=== PATIENT | female | born 1970 | race African-American/Black ===

== ENCOUNTER 2017-03-07 13:24 | Inpatient (IN) | payer OTHER ==
[~2017-03-07] VITALS: Ht 157.5 cm; Wt 94.8 kg
[~2017-03-07 13:24] MED LIST: ATORVASTATIN CA40 MG PO; CARVEDILOL25 MG PO; HUMALOG SL100 UNITS/; HYZAAR 25 MG-101 TAB PO; LANTUS INS100 UNITS/ SUBQ; LASIX20 MG PO; LISINOPRIL40 M1 PO; METFORMIN500 MG PO; OMEPRAZOLE20 M3 PO; SYNTHROID0.025 MG PO
[2017-03-07 13:26] VITALS: BP 146/91
[2017-03-07] MEDS ORDERED: ALBUTEROL SULFATE/IPRATROPIU 3 ML SOL IH ONE ×2 (13:35→14:25)
--- NOTE | 2017-03-07 13:45 | NUR ---
PATIENT PRESENTS TO ED WITH asthma exacerbation--last night, full clear speech at this time seen at urgent care x2 days ago dx uri hx asthma, dm, htn, thyroid, chf PT STATES THE OVER THE COUNTER MEDICINE DIDNT WORK, WITH DIARRHEA 3X AT HOME; SKIN IS PINK/WARM/DRY; AAOX4 WITH EVEN AND STEADY GAIT; HR EVEN AND REGULAR; PT DENIES ANY FEVER, CP. PATIENT STATES PAIN OF 0/10 AT THIS TIME; PATIENT POSITIONED FOR COMFORT; HOB ELEVATED; BEDRAILS UP X2; BED DOWN. ER MD MADE AWARE OF PT STATUS. TALKED TO RT MADE AWARE OF THE HHN ORDER
--- NOTE | 2017-03-07 13:50 | NUR ---
RT AT BEDSIDE
--- NOTE | 2017-03-07 13:51 | NUR ---
ADMITTING DX: ADULT-ASTHMA LOC AWAKE AND ALERT IN HFW POSITION PATEINT ASSESSMENT COMPLETED EDUCATION PROVIDED TO PATIENT WITH ACKNOWLEDGEMENT ON HHN THERAPY AND RESPIRATORY DRUG HHN THERAPY GIVEN ORDERED ENCOURAGED DEEP BREATH COUGH DURING THERAPY TOLERATED WELL WITHOUT INCIDENT
--- NOTE | 2017-03-07 13:59 | NUR ---
DR. VALIENTE AT BEDSIDE
[2017-03-07] MEDS ORDERED: methylPREDNISolone SS 125 MG in WATER STERILE 2 ML IV ONE (14:05)
--- NOTE | 2017-03-07 14:11 | NUR ---
LAB AT BEDSIDE
--- NOTE | 2017-03-07 14:12 | NUR ---
TALKED TO DR. VALIENTE MADE AWARE O2 SAT 91 ON ROOM AIR, PER MD MAY PUT O2 AT 2L/NC,
--- NOTE | 2017-03-07 14:15 | NUR ---
XRAY AT BEDSIDE
--- NOTE | 2017-03-07 14:16 | NUR ---
EKG AT BEDSIDE
--- NOTE | 2017-03-07 14:31 | NUR ---
RT AT BEDSIDE
--- NOTE | 2017-03-07 14:31 | NUR ---
FOLLOW UP AWAKE AND ALERT POSITION GREATER THAN 30 DEGREES HHN THERAPY GIVEN ORDERED ENCOURAGED DEEP BREATH AND COUGH STRONG MOIST NPC TOLERATED WELL WITHOUT INCIDENT
[2017-03-07] MEDS ORDERED: ENOXAPARIN 80 MG/0.8 ML SYR SUBQ ONE (15:00)
[2017-03-07] MEDS ORDERED: POTASSIUM CHLORIDE 10 MEQ TABER PO ONE (15:00)
[2017-03-07] MEDS ORDERED: ASPIRIN 325 MG TAB PO ONE (15:00)
--- NOTE | 2017-03-07 15:11 | NUR ---
DR. VALIENTE AT BEDSIDE
[2017-03-07] MEDS ORDERED: LEVOFLOXACIN 750 MG/D5W PREMIX 150 ML IV ONE (15:15)
[2017-03-07] MEDS ORDERED: FUROSEMIDE 40 MG/4 ML VIAL IVP ONE (15:15)
[2017-03-07] MEDS ORDERED: NITROGLYCERIN 2% 1 GM PKT TP ONE (15:15)
--- NOTE | 2017-03-07 15:48 | NUR ---
RECEIVED REPORT FROM ER NURSE. WILL BE BRINGING PT ONTO FLOOR SOON WITH LEVAQUIN, STILL INFUSING. WILL GET ROOM READY.
--- NOTE | 2017-03-07 16:00 | NUR ---
PT CAME ON FLOOR ON [facility] WITH 2 ER NURSES. PT AMBULATED FROM [facility] TO THE BATHROOM AND TO BED. I INTRODUCED MYSELF, UPDATED THE BOARD. PT IS ALERT AND ORIENTED. GOOD HISTORIAN OF HER MED HX. PT IS A 46 Y/O -[place] FEMALE. PT SKIN INTACT. PT HAD NC ON O2 AT 2 L. IV ON R HAND 22G SL. ADMINISTERED TELE MONITOR, ID BAND AND BROWN SOCKS. MRSA SCREENING DONE. V/S DONE. B/P SLIGHTLY HIGH AT 151/102, PT ST. ADMINISTERED THE LEVAQUIN THAT THE ER NURSE BROUGHT. PT TOLERATING WELL. WILL CONTINUE WITH THE ADMISSION PROCESS. DENIES ANY PAIN. WILL CONTINUE TO MONITOR PT.
[2017-03-07 16:52] VITALS: BP 151/102
[2017-03-07] MEDS ORDERED: ALBUTEROL SULFATE/IPRATROPIU 3 ML SOL IH PRN (17:00)
[2017-03-07] MEDS ORDERED: DEXTROSE 50% 50 ML SYR IVP PRN (17:00)
[2017-03-07] MEDS ORDERED: LABETALOL 100 MG/20 ML VIAL IVP PRN (17:10)
[2017-03-07] MEDS ORDERED: MORPHINE SULFATE 2 MG/ML SYR IVP PRN (17:15)
[2017-03-07] MEDS ORDERED: MORPHINE SULFATE 4 MG/ML SYR IVP PRN (17:15)
[2017-03-07] MEDS ORDERED: ONDANSETRON 4 MG/2 ML VIAL IVP PRN (17:15)
--- NOTE | 2017-03-07 18:00 | NUR ---
NO DINNER ARRIVED. DR. CISNEROS'S ORDER WENT IN LATE. CALLED DIETARY TO BRING UP A TRAY. PT IS ALERT AND ORIENTED. AMBULATING TO THE BATHROOM. NC STILL INTACT. WILL CONTINUE TO MONITOR PT.
[2017-03-07] MEDS ORDERED: METOPROLOL SUCCINATE 50 MG TABER PO SCH (18:30)
[2017-03-07] MEDS: methylPREDNISolone SS 40 MG/ML VIAL IVP SCH ×2 (18:32→23:56)
--- NOTE | 2017-03-07 19:10 | NUR ---
ENDORSED PT TO THE MACHINE TOOL TECHNICIAN INSTRUCTOR NURSE AT BEDSIDE FOR CONTINUITY OF CARE. PT IS IN STABLE CONDITION.
--- NOTE | 2017-03-07 19:30 | NUR ---
RECEIVED FROM AM RN IN BED AWAKE AND ALERT. SITTING UP IN BED AND EATING DINNER. CALL LIGHT WITH IN REACH. ENCOURAGED TO CALL FOR ANY HELP SHE MAY NEED OR IF IN PAIN. CARE PLANS FOR THE NIGHT DISCUSSED WITH HER. TELEMETRY MONITORING. 02 SAT WITH 02 AT 94 %.
[2017-03-07] MEDS: ALBUTEROL SULFATE/IPRATROPIU 3 ML SOL IH SCH (19:37)
[2017-03-07] MEDS: BUDESONIDE 0.5 MG/2 ML NEBU INH SCH (19:37)
[2017-03-07 20:28] VITALS: BP 144/93
[2017-03-07] MEDS: BLOOD GLUCOSE MONITORING 1 DEV DEV FS SCH (20:51)
[2017-03-07] MEDS: INSULIN LISPRO SLIDING SCALE 100 UNITS/ML VIAL SUBQ PRN (20:51)
[2017-03-07] MEDS ORDERED: TEMAZEPAM 15 MG CAP PO SCH (21:00)
[2017-03-07] MEDS ORDERED: FUROSEMIDE 40 MG TAB PO SCH (21:00)
--- NOTE | 2017-03-07 21:30 | NUR ---
PAGED AND ABLE TO TALK WITH MD MIRZA RE TROPONIN #2 RESULT IS 0.491 AN INCREASE FROM 0.478 TODAY. TALKED WITH PT. ON THE PHONE AND WITH ORDERS TO TRANSFER PT. TOMORROW AT 10 AM TO [facility] VIA PARAMEDICS. MD MIRZA EXPLAINED PROS AND CONS OF ANGIOGRAM HE WANTS DONE. PT. UNDERSTOOD WELL. INFORMED CHARGE NURSE. AWARE.
[2017-03-08 00:50] VITALS: BP 150/91
--- NOTE | 2017-03-08 00:55 | NUR ---
PT. SLEEPING AT THIS TIME. MEDICATED WITH RESTORIL 15 MG. P.O. ORDERED BY MD MIRZA RT UN ABLE TO SLEEP. CALL LIGHT WITH IN REACH.
[2017-03-08] MEDS: ALBUTEROL SULFATE/IPRATROPIU 3 ML SOL IH SCH ×2 (01:07→07:18)
--- NOTE | 2017-03-08 01:14 | NUR ---
SPUTUM SPECIMEN COLLECTED BY RESPIRATORY THERAPIST AND SENT TO LAB.
--- NOTE | 2017-03-08 03:10 | NUR ---
SLEEPING AT THIS TIME. NO RESTLESSNESS. TELEMETRY MONITORING.
[2017-03-08 03:29] VITALS: BP 140/73
[2017-03-08] MEDS: methylPREDNISolone SS 40 MG/ML VIAL IVP SCH (06:03)
[2017-03-08] MEDS: BLOOD GLUCOSE MONITORING 1 DEV DEV FS SCH (06:04)
[2017-03-08] MEDS: INSULIN LISPRO SLIDING SCALE 100 UNITS/ML VIAL SUBQ PRN (06:06)
[2017-03-08] MEDS ORDERED: LEVOTHYROXINE 0.1 MG, LEVOTHYROXINE 0.05 MG PO SCH (06:30)
--- NOTE | 2017-03-08 07:03 | NUR ---
AWAKE AND REMINDED LIQUID DIET AND NPO AFTER 7 A.M.
[2017-03-08] MEDS: BUDESONIDE 0.5 MG/2 ML NEBU INH SCH (07:17)
--- NOTE | 2017-03-08 07:29 | NUR ---
TROPONIN LATEST 0.397 REPORTED BY LAB. TECH. PER HERMES NOT TO CALL HIM ANYMORE OF THE 3RD VALUE. ENDORSED TO THE NEXT RN FOR CONTINUITY OF CARE. AWAKE AND ALERT AT THIS TIME. REMINDED OF NPO AFTER 7 A.M.
--- NOTE | 2017-03-08 07:36 | NUR ---
RECEIVED REPORT FROM BLADIMIR RAMOS. PT IS RESTING IN BED, A/OX4, PT HAS IV ON RT HAND, PATENT AND INTACT, SKIN IS INTACT, NO S/S OF RESPIRATORY DISTRESS OR DISCOMFORT NOTED, FALL/SAFETY PRECAUTIONS ARE IN PLACE, DISCUSSED PLAN OF CARE WITH PT, PT VERBALIZED UNDERSTANDING, CALL LIGHT IS WITHIN REACH, WILL CONTINUE TO MONITOR.
--- NOTE | 2017-03-08 07:54 | NUR ---
PATIENT HAS BEEN SCREENED AND CATEGORIZED MODERATE NUTRITION RISK. PATIENT WILL BE SEEN WITHIN 3-5 DAYS OF ADMISSION. 03/10/17-03/12/[address]
[2017-03-08 08:00] VITALS: BP 136/75
[2017-03-08] MEDS ORDERED: PANTOPRAZOLE 40 MG TABEC PO SCH (08:00)
--- NOTE | 2017-03-08 08:20 | NUR ---
DUE MEDICATIONS GIVEN, HELD THE LOVENOX AND ASPIRIN SINCE PT WELL BE UNDERGOING AN ANGIO JUMPBASTING ARMHOLE BASTER PROCEDURE.
[2017-03-08] MEDS ORDERED: NON-FORMULARY ITEM (Omeprazole 20 MG) PO SCH (09:00)
[2017-03-08] MEDS ORDERED: LOSARTAN PO SCH (09:00)
[2017-03-08] MEDS ORDERED: HYDROCHLOROTHIAZIDE 25 MG TAB PO SCH (09:00)
[2017-03-08] MEDS ORDERED: HYDROCHLOROTHIAZIDE PO SCH (09:00)
[2017-03-08] MEDS ORDERED: ECOTRIN 81 MG TABEC PO SCH (09:00)
[2017-03-08] MEDS ORDERED: LISINOPRIL 20 MG TAB PO SCH (09:00)
[2017-03-08] MEDS ORDERED: ATORVASTATIN 20 MG TAB PO SCH (09:00)
[2017-03-08] MEDS ORDERED: NON-FORMULARY ITEM (Lisinopril 1 TAB) PO SCH (09:00)
[2017-03-08] MEDS ORDERED: LOSARTAN 50 MG TAB PO SCH (09:00)
[2017-03-08] MEDS ORDERED: FUROSEMIDE 40 MG/4 ML VIAL IVP SCH (09:00)
[2017-03-08] MEDS ORDERED: LEVOTHYROXINE 0.025 MG TAB PO SCH (09:00)
[2017-03-08] MEDS ORDERED: NON-FORMULARY ITEM (Atorvastatin Calcium 1 TAB) PO SCH (09:00)
[2017-03-08] MEDS ORDERED: ENOXAPARIN 40 MG/0.4 ML SYR SUBQ SCH (09:00)
[2017-03-08] MEDS ORDERED: METOPROLOL SUCCINATE 50 MG TABER PO SCH (09:00)
--- NOTE | 2017-03-08 09:05 | NUR ---
FAXED INITIAL REVIEW TO [facility] [phone] PHONE ADELSO [phone] RECEIVED ORDER FOR PATIENT TO GO TO [facility] FOR ANGIOGRAM. I CALLED [facility] MINUTE CLERK FOR BASIC TRAFFIC AND SPOKE WITH ANDRES AND FAXED INFORMATION TO HER. SHE SAID TO HAVE THE PATIENT PICKED UP AT 10A.M. HERE AND STOP IN ER AT [facility]. I CALLED ADELSO FROM [facility], THE AUTH FOR TRANSPORT IS [id number]. I SET UP TRANSPORT FOR [facility] FOR 10A.M. LOIS GARRISON AWARE. I TOLD HER TO CALL [facility] MINUTE CLERK FOR BASIC TRAFFIC TO GIVE REPORT. WAITING FOR AUTH FOR [facility].
--- NOTE | 2017-03-08 09:28 | NUR ---
RECEIVED CALL FROM ADELSO FROM [facility]. AUTH FOR [facility] IS [id number]. I CALLED [facility] AND SPOKE WITH ANDRES AND GAVE HER THE AUTH NUMBER AND THE PHONE NUMBER TO ADELSO FROM [facility].
--- NOTE | 2017-03-08 09:44 | NUR ---
I NOTIFIED DR. MIRZA ABOUT THE PREVIOUS ECHO DONE IN 11-26-16, AWAITING RESPONSE IF HE WANTS A REPEAT ECHO OR TO CANCEL IT. PUT THE PREVIOUS REPORT IN THE CHART AND NOTIFIED THE NURSE(ESTHELA). SHE PAGED DR. MIRZA AND AWAITING RESPONSE
--- NOTE | 2017-03-08 09:47 | NUR ---
CALLED [facility] AT [phone], GAVE REPORT TO BLADIMIR ELLISON. IN HOTBED LEVER OPERATOR, INFORMED HIM PT WOULD BE PICKED UP FROM [facility] [address] AT 1000.
[2017-03-08] MEDS ORDERED: MAG SULF 2000 MG/WATER PREMIX 50 ML IV SCH (10:00)
[2017-03-08] MEDS ORDERED: POTASSIUM CHLORIDE 10 MEQ TABER PO SCH (10:00)
--- NOTE | 2017-03-08 10:10 | NUR ---
GAVE PT DISCHARGE/TRANSFER INSTRUCTIONS, PT VERBALIZED UNDERSTANDING, REMOVED ID WRIST BAND, PT STABLE UPON DISCHARGE.
[2017-03-09] MEDS ORDERED: ATORVASTATIN 20 MG TAB PO SCH (09:00)
== END 2017-03-08 10:30 | disposition short-term general hospital (02) | DRG 190 ==
LOC: MED 13:24 → MTU 15:55
PROVIDERS: ADMIT Internal Medicine Pulmonary Disease; ATTEND Internal Medicine Pulmonary Disease
DX: I21.4 Non-ST elevation (NSTEMI) myocardial infarction (principal); J96.01 Acute respiratory failure with hypoxia; I11.0 Hypertensive heart disease with heart failure; J45.901 Unspecified asthma with (acute) exacerbation; I50.9 Heart failure, unspecified; I42.9 Cardiomyopathy, unspecified; K21.9 Gastro-esophageal reflux disease without esophagitis; E11.9 Type 2 diabetes mellitus without complications; E03.9 Hypothyroidism, unspecified; E78.5 Hyperlipidemia, unspecified; J20.9 Acute bronchitis, unspecified; Z79.4 Long term (current) use of insulin

== ENCOUNTER 2017-11-27 07:33 | Inpatient (IN) | payer OTHER ==
[~2017-11-27] VITALS: Ht 157.5 cm; Wt 98.4 kg
[2017-11-27 07:33] VITALS: BP 159/79
[~2017-11-27 07:33] MED LIST changes: +ATOR40TA40 PO; -ATORVASTATIN CA40 MG PO; +CARV25TA2 PO; -CARVEDILOL25 MG PO; +FURO-572 PO; +GLU500 PO; -HUMALOG SL100 UNITS/; +HUMSLIDE; +HYDR1TAB32 PO; -HYZAAR 25 MG-101 TAB PO; -LANTUS INS100 UNITS/ SUBQ; +LANTUS SUBQ; -LASIX20 MG PO; +LISI40TA4 PO; -LISINOPRIL40 M1 PO; -METFORMIN500 MG PO; +OMEP20TC10 PO; -OMEPRAZOLE20 M3 PO; +SYN.025 PO; -SYNTHROID0.025 MG PO
[2017-11-27] MEDS ORDERED: ALBUTEROL SULFATE/IPRATROPIU 3 ML SOL IH ONE ×2 (07:40→08:45)
[2017-11-27] MEDS ORDERED: methylPREDNISolone SS 125 MG in WATER STERILE 2 ML IV ONE (07:40)
--- NOTE | 2017-11-27 07:41 | NUR ---
patient ambulated to er bed 3
--- NOTE | 2017-11-27 07:49 | NUR ---
Breathing treatment administered at bedside by respiratory therapist.
[2017-11-27] MEDS ORDERED: BECL0.0815 INH (07:53)
[2017-11-27] MEDS ORDERED: SPIR25TA PO (07:53)
[2017-11-27] MEDS ORDERED: DEP150I IM (07:53)
[2017-11-27] MEDS ORDERED: TEMA30CA23 PO (07:53)
[2017-11-27] MEDS ORDERED: ALBU0.0912 IH (07:53)
[2017-11-27] MEDS ORDERED: ACET-2858 PO (07:53)
--- NOTE | 2017-11-27 07:55 | NUR ---
ASSUMED PATIENT CARE, CONCUR WITH TRIAGE ASSESSMENT. ORIENTED PATIENT TO ER COURSE AND TREATMENT.
[2017-11-27 08:11] LABS: ANION GAP 9.2 (8-16); CARBON DIOXIDE 30.2 mmol/L (21-32); CREATININE 0.8 mg/dL (0.6-1.3); POTASSIUM 3.4 mmol/L (3.5-5.1)
[2017-11-27 08:17] LABS: ALBUMIN 3.7 g/dL (3.4-5.0); TOTAL BILIRUBIN 0.7 mg/dL (0.0-1.0)
[2017-11-27 08:25] LABS: BASOPHILS # (AUTO) 0.1 K/uL (0.00-0.22); BASOPHILS % (AUTO) 1.3 % (0.0-2.0); EOSINOPHILS # (AUTO) 0.1 K/uL (0-0.4); EOSINOPHILS % (AUTO) 1.2 % (0.0-4.0); HEMOGLOBIN 12.8 g/dL (12.0-16.0); LYMPHOCYTES # (AUTO) 0.9 K/uL (2.5-16.5); LYMPHOCYTES % (AUTO) 12.1 % (20.5-51.1); MEAN CORPUSCULAR HEMOGLOBIN 30 pg (27-31); MEAN CORPUSCULAR HGB CONC 33 g/dL (33-37); MEAN CORPUSCULAR VOLUME 92 fL (80-94); MONOCYTES # (AUTO) 0.4 K/uL (0.8-1.0); MONOCYTES % (AUTO) 5.8 % (1.7-9.3); NEUTROPHILS # (AUTO) 5.8 K/uL (1.8-7.7); NEUTROPHILS % (AUTO) 79.6 % (42.2-75.2); PLATELET COUNT (AUTO) 130 K/uL (140-450); RED BLOOD CELL COUNT(AUTO) 4.24 MIL/uL (4.20-5.40); RED CELL DISTRIBUTION WIDTH 16.4 % (11.6-13.7); WHITE BLOOD COUNT (AUTO) 7.3 K/uL (4.8-10.8)
[2017-11-27] MEDS ORDERED: ASPIRIN 325 MG TAB PO ONE (08:55)
--- NOTE | 2017-11-27 08:59 | NUR ---
PATIENT VERBALIZING IMPROVEMENT IN SYMPTOMS, SEEN AND REEVALUATED BY PROVDER ACCORDINGLY. AWAITING DISPO AND MEDICAL DECISION MAKING, VSWNL, NO DISTRESS, NO SOB.
--- NOTE | 2017-11-27 09:04 | NUR ---
Notified Dr. Jhon Gallagher of Cardiology consultation.
[2017-11-27] MEDS ORDERED: KCL 20 MEQ/WATER INJ PREMIX 100 ML IV ONE (09:05)
[2017-11-27] MEDS ORDERED: ONDANSETRON 4 MG/2 ML VIAL IVP PRN (09:15)
--- NOTE | 2017-11-27 09:50 | NUR ---
PT ARRIVED TO UNIT VIA GURNEY. RECEIVED REPORT FROM [facility] RN AT BEDSIDE. NO SIGNS OF ACUTE DISTRESS AT THIS TIME. PT IS AAOX4. PT IS ON O2 2L/MIN NC. PT IS CURRENTLY SINUS RHYTHM ON THE MONITOR. PT HAS AN ICD TO LEFT UPPER CHEST, WITH OLD SCAR NOTED. SKIN IS OTHERWISE INTACT. PT ABLE TO AMBULATE TO BED WITH STEADY GAIT. ADMISSION ASSESSMENT COMPLETE. MRSA SWAB OBTAINED. SAFETY PRECAUTIONS IN PLACE WITH BED IN LOWEST POSITION AND SIDE RAILS UP. CALL LIGHT WITHIN REACH. TEMP: 98.3, HR: 89, BP: 151/102, RR: 36. WILL CONTINUE TO MONITOR.
[2017-11-27] MEDS: MORPHINE SULFATE 2 MG/ML SYR IVP PRN (10:04)
--- NOTE | 2017-11-27 10:05 | NUR ---
DISPO AND MEDICAL DECISION MAKING, INPATIENT ADMISSION FOR FURTHER MANAGEMENT. PATIENT CARE REPORT TO ADRIANNE, PATIENT TRANSFERRED VIA ACLS PROTOCOL, VSWNL, NO DISTRESS.
--- NOTE | 2017-11-27 10:08 | NUR ---
PT C/O PAIN TO RIGHT SHOULDER. 6/0, SHARP. CHECKED BP: 151/102. ADMINISTERED MORPHINE ORDERED PRN FOR PAIN. PT TOLERATED WELL. WILL REASSESS.
[2017-11-27] MEDS: methylPREDNISolone SS 40 MG/ML VIAL IVP SCH ×3 (11:27→23:28)
[2017-11-27] MEDS: AZITHROMYCIN 500 MG in DEXTROSE 5% 250 ML IV SCH (11:28)
[2017-11-27] MEDS: BLOOD GLUCOSE MONITORING 1 DEV DEV FS SCH ×3 (11:30→20:22)
[2017-11-27] MEDS: INSULIN LISPRO SLIDING SCALE 100 UNITS/ML VIAL SUBQ PRN ×3 (11:32→20:23)
--- NOTE | 2017-11-27 11:52 | NUR ---
PT TOLERATED MEDS WELL.
[2017-11-27 12:00] VITALS: BP 150/97
[2017-11-27] MEDS ORDERED: methylPREDNISolone SS 40 MG in WATER STERILE 1 ML IV SCH (12:00)
--- NOTE | 2017-11-27 12:30 | NUR ---
DR. Armando CAMPA IN TO SEE PT. WILL FOLLOW UP ON ORDERS.
[2017-11-27] MEDS: IPRATROPIUM 0.02% 0.5 MG/2.5 ML NEBU IH SCH ×2 (12:59→19:48)
[2017-11-27] MEDS: ALBUTEROL 0.083% 2.5 MG/3 ML NEBU IH SCH ×2 (12:59→19:48)
--- NOTE | 2017-11-27 13:27 | NUR ---
DR. OLMOS IN TO SEE PT. WILL FOLLOW UP ON ORDERS.
[2017-11-27] MEDS ORDERED: MORPHINE SULFATE 4 MG/ML SYR IVP PRN (14:10)
[2017-11-27 16:00] VITALS: BP 123/74
--- NOTE | 2017-11-27 16:44 | NUR ---
CHECKED ON PT. NO SIGNS OF ACUTE DISTRESS AT THIS TIME. CALL LIGHT WITHIN REACH. WILL CONTINUE TO MONITOR.
--- NOTE | 2017-11-27 17:08 | NUR ---
PT TOLERATED MEDS WELL.
--- NOTE | 2017-11-27 17:48 | NUR ---
PT UP AND EATING DINNER WITH NO ISSUES. CALL LIGHT WITHIN REACH.
--- NOTE | 2017-11-27 19:17 | NUR ---
ENDORSED CARE TO BLADIMIR MARQUEZ. PT IN STABLE CONDITION.
--- NOTE | 2017-11-27 19:30 | NUR ---
RECEIVED PT FROM AM SHIFT. PT IS ALERT,ORIENTED X4. NO C/O PAIN AT THIS TIME.PT IS ON O2 VIA N/C AT 2 LPM TOLERATING WELL. NO S/S OF RESP DISTRESS.NO SOB. HOB UP 30-45 DEGREE ALL THE TIMES.DREW LUNGS SOUND CLEAR. NSR ON MONITOR. PT HAS ICD TO LEFT UPPER CHEST ,SCAR NOTED ON ICD AREA.OTHER RICHARD SKIN IS INTACT. RESIDENT IS CONTINENT BOWEL AND BLADDER. ABLE TO AMBULATE TO BATHROOM. GENTLE CARE GIVEN. KEPT CLEAN AND DRY. CALL LIGHT IN REACH.
--- NOTE | 2017-11-27 19:35 | NUR ---
LAB REPORTING THE RESULT OF TROPONIN 1 IS 0.364 RESULT IS TRENDING DOWN FROM 0.428. CONT TO MONOR PT. PT WILL HAVE CARDIAC PANEL TEST IN AM.
[2017-11-27 20:00] VITALS: BP 133/90
[2017-11-27] MEDS: SPIRONOLACTONE 25 MG TAB PO SCH (20:21)
[2017-11-27] MEDS: CARVEDILOL 3.125 MG TAB PO SCH (20:22)
[2017-11-27] MEDS: TEMAZEPAM 15 MG CAP PO SCH (20:22)
[2017-11-27] MEDS: INSULIN DETEMIR 100 UNITS/ML 10 ML VIAL SUBQ SCH (20:24)
--- NOTE | 2017-11-27 20:30 | NUR ---
PT AMBULATE TO BATHROOM. URINATE X1. YELLOW CLEAR URINE.AFTER THE REST ROOM PT HAS EPISODE OF LOW SPOE TO 89% INCREASE O2 TO 4-5LPM HOB UP 45 DEGREE JABIER WELL. SPO2 UP TO 96%.
[2017-11-27] MEDS ORDERED: CARVEDILOL PO SCH (21:00)
[2017-11-27] MEDS ORDERED: NON-FORMULARY ITEM (Atorvastatin Calcium 1 TAB) PO SCH (21:00)
[2017-11-27] MEDS ORDERED: INSULIN GLARGINE SUBQ SCH (21:00)
--- NOTE | 2017-11-27 21:00 | NUR ---
BLOOD SUGAR IS 299 . HUMALOG INSULIN GIVEN PERSLIDING AND LEVEMIR GIVEN ORDER. ALL NIGHT MEDS GIVEN. PT WAS C/O SHARP PAIN 8/10 TO SHOULDER AREA AND CHEST. REPOSITION PT FOR COMFORT.MORPHINE IVP GIVEN PRN AND TOLERATING WELL.PT SLEPT AT THIS TIME.
[2017-11-28] VITALS: BP 134/80
--- NOTE | 2017-11-28 00:50 | NUR ---
SOLU MEDROL ORDER GIVEN. PT SLEEPING AT THIS TIME. NO FEVER NOTED.
[2017-11-28] MEDS: ALBUTEROL 0.083% 2.5 MG/3 ML NEBU IH SCH ×4 (01:57→19:35)
[2017-11-28] MEDS: IPRATROPIUM 0.02% 0.5 MG/2.5 ML NEBU IH SCH ×4 (01:57→19:35)
--- NOTE | 2017-11-28 02:00 | NUR ---
PT SLEEPING WELL. NO S/S OF PAIN AT THIS TIME.
[2017-11-28 04:00] VITALS: BP_SYST 117; BP_SYST 164; BP_DIAS 84; BP_DIAS 88
--- NOTE | 2017-11-28 04:10 | NUR ---
PT SLEEPING WELL. NO S/S OF RESP.DISTRESS. NO SOB. CALL LIGHT IN REACH.
[2017-11-28] MEDS: methylPREDNISolone SS 40 MG/ML VIAL IVP SCH ×3 (05:15→21:23)
[2017-11-28 05:24] LABS: BASOPHILS # (AUTO) 0.5 K/uL (0.00-0.22); BASOPHILS % (AUTO) 4.5 % (0.0-2.0); EOSINOPHILS # (AUTO) 0.1 K/uL (0-0.4); EOSINOPHILS % (AUTO) 0.6 % (0.0-4.0); HEMATOCRIT 41.1 % (36-48); HEMOGLOBIN 12.9 g/dL (12.0-16.0); LYMPHOCYTES # (AUTO) 0.7 K/uL (2.5-16.5); LYMPHOCYTES % (AUTO) 6.1 % (20.5-51.1); MEAN CORPUSCULAR HEMOGLOBIN 30 pg (27-31); MEAN CORPUSCULAR HGB CONC 32 g/dL (33-37); MEAN CORPUSCULAR VOLUME 94 fL (80-94); MONOCYTES # (AUTO) 0.2 K/uL (0.8-1.0); MONOCYTES % (AUTO) 1.7 % (1.7-9.3); NEUTROPHILS # (AUTO) 10.6 K/uL (1.8-7.7); NEUTROPHILS % (AUTO) 87.1 % (42.2-75.2); PLATELET COUNT (AUTO) 155 K/uL (140-450); RED BLOOD CELL COUNT(AUTO) 4.39 MIL/uL (4.20-5.40); RED CELL DISTRIBUTION WIDTH 17.3 % (11.6-13.7); WHITE BLOOD COUNT (AUTO) 12.1 K/uL (4.8-10.8)
--- NOTE | 2017-11-28 05:48 | NUR ---
PT AMBULATE TO BATH ROOM AND URINATE X1. PT IS AWAKE. DENIES ANY PAIN AT THIS TIME. PT ABLE TO BRUSH HER TEETH IN THE BATH ROOM. KEPT CLEAN AND DRY.
[2017-11-28 06:27] LABS: ALBUMIN 3.7 g/dL (3.4-5.0); ANION GAP 10.8 (8-16); CARBON DIOXIDE 32.7 mmol/L (21-32); CREATININE 0.8 mg/dL (0.6-1.3); POTASSIUM 5.5 mmol/L (3.5-5.1); TOTAL BILIRUBIN 0.5 mg/dL (0.0-1.0)
[2017-11-28] MEDS: LEVOTHYROXINE 0.075 MG TAB PO SCH (06:40)
[2017-11-28] MEDS: PANTOPRAZOLE 40 MG TABEC PO SCH (06:40)
[2017-11-28] MEDS: BLOOD GLUCOSE MONITORING 1 DEV DEV FS SCH ×4 (06:41→21:21)
[2017-11-28] MEDS: INSULIN LISPRO SLIDING SCALE 100 UNITS/ML VIAL SUBQ PRN ×4 (06:42→21:29)
--- NOTE | 2017-11-28 07:17 | NUR ---
REPORT GIVEN TO AM SHIFT. PT IS STABLE AT THIS TIME. PT SLEEPING EASY TO AWAKE.NO S/S OF RESP DISTRESS,NO SOB.
--- NOTE | 2017-11-28 07:20 | NUR ---
REPORT RECEIVED FROM FORGING PRESS SETTER UP RN. PT IS ALERT AND ORIENTED X 4. ABLE TO MAKE NEEDS KNOWN. NO C/O PAIN OR DISCOMFORT AT THIS TIME. NORMAL SINUS RHYTHM ON MONITOR. PT IS ON O2 AT 4 LPM/NC, O2 SAT 97%. NO SOB NOTED. LUNGS CLEAR BILATERALLY. ABDOMEN SOFT, NONTENDER, BOWEL SOUNDS PRESENT X 4 QUADRANTS. PERIPHERAL IV TO RIGHT FOREARM PATENT AND INTACT. PT HAS ICD TO LEFT UPPER CHEST. SKIN IS DRY AND WARM TO TOUCH. HOB [address] FOR VTE PROPHYLAXIS. BED IN LOW POSITION AND CALL LIGHT WITHIN REACH. SAFETY PRECAUTIONS IN PLACE. WILL CONTINUE TO MONITOR.
--- NOTE | 2017-11-28 07:56 | NUR ---
PATIENT TRANSFERRING T [facility] 112-B VICE PRESIDENT [employer] TO GIVE HHN THERAPY IN MST NO SOB NOTED
[2017-11-28 08:00] VITALS: BP 137/89
--- NOTE | 2017-11-28 08:10 | NUR ---
PT ARRIVED ON THE UNIT WITH 1 ONLINE ADVERTISING MANAGER. PT IS IN STABLE CONDITION. INTRODUCED MYSELF AND UPDATED THE BOARD. AMBULATED TO THE BED FROM [facility]. NO SIGNS OF DISTRESS. ALERT ORIENTED. STEADY GAIT. SKIN INTACT. NOTED THE NC O2 AT 2L. NO COMPLAINTS OF ANY PAIN OR DISCOMFORT. ADMINISTERED TELE MONITOR, ADMINISTERED O2. ADMINISTERED SCD'S. PT ON CCHO DIET. GAVE HER BREAKFAST TRAY. PT HAS NO COMPLAINTS AT THIS TIME. WILL CONTINUE TO MONITOR PT.
--- NOTE | 2017-11-28 08:15 | NUR ---
PT TRANSFERRED TO TELEMETRY ROOM 112 B. PT IS IN STABLE CONDITION. NO S/SX OF ACUTE DISTRESS NOTED. REPORT GIVEN TO BLADIMIR SILVA AT [facility].
--- NOTE | 2017-11-28 08:25 | NUR ---
AWAKE AND ALERT PATIENT WITH BREAKFAST TRAY AT THIS TIME NO SOB NOTED CAPTION WRITER TO ATTEMPT HHN THERAPY AT A LATER TIME
--- NOTE | 2017-11-28 08:30 | NUR ---
PATIENT C/O OF NASAL DRYNESS WITH SUPPLEMENTAL OXYGEN USE ADDED HUMIDIFIER
--- NOTE | 2017-11-28 08:41 | NUR ---
PATIENT HAS BEEN SCREENED AND CATEGORIZED HIGH NUTRITION RISK. PATIENT WILL BE SEEN WITHIN 1-2 DAYS OF ADMISSION. 11/27/17-11/28/[address]
--- NOTE | 2017-11-28 08:51 | NUR ---
POST HHN THERAPY INCREASED FIO2 TO 4 LPM VIA NC TO KEEP SATURATION GREATER THAN 90% Addendum: 11/28/17 at 0905 by Reuben Raimrez RT SHIRA/BLADIMIR AT BEDSIDE NOTIFIED
[2017-11-28] MEDS ORDERED: LISINOPRIL 20 MG TAB PO SCH (09:00)
[2017-11-28] MEDS ORDERED: NON-FORMULARY ITEM (Lisinopril 1 TAB) PO SCH (09:00)
[2017-11-28] MEDS ORDERED: LEVOTHYROXINE 0.025 MG TAB PO SCH (09:00)
[2017-11-28] MEDS ORDERED: NON-FORMULARY ITEM (Omeprazole 20 MG) PO SCH (09:00)
[2017-11-28] MEDS ORDERED: FUROSEMIDE 40 MG TAB PO SCH (09:00)
[2017-11-28] MEDS: CARVEDILOL 3.125 MG TAB PO SCH ×2 (09:38→21:25)
[2017-11-28] MEDS: ACETAMINOPHEN 325 MG TAB PO PRN (09:39)
[2017-11-28] MEDS: ATORVASTATIN 20 MG TAB PO SCH (09:39)
[2017-11-28] MEDS: FUROSEMIDE 40 MG/4 ML VIAL IVP SCH (09:40)
[2017-11-28] MEDS: ENOXAPARIN 30 MG/0.3 ML SYR SUBQ SCH (09:41)
--- NOTE | 2017-11-28 09:45 | NUR ---
ADMINISTERED MORNING MEDS INCLUDING TYLENOL FOR FONG 02/01. PT TOLERATED WELL. ALL NEEDS MET AT THIS TIME. CALL LIGHT WITHIN REACH. WILL CONTINUE TO MONITOR PT.
[2017-11-28 10:35] LABS: CREATINE KINASE MB 1.4 ng/mL (0-3.6)
[2017-11-28] MEDS: AZITHROMYCIN 500 MG in DEXTROSE 5% 250 ML IV SCH (11:19)
[2017-11-28 12:00] VITALS: BP 123/74
[2017-11-28] MEDS ORDERED: SODIUM POLYSTYRENE 15 GM/60 ML UDBTL PO SCH (13:10)
[2017-11-28] MEDS: INSULIN DETEMIR 100 UNITS/ML 10 ML VIAL SUBQ SCH ×2 (13:56→21:28)
--- NOTE | 2017-11-28 14:00 | NUR ---
AWAKE AND ALERT TOLERATED INCENTIVE SPIROMETRY THERAPY WELL ENCOURAGED PATIENT WITH ACKNOWLEDGEMENT TO USE EVERY 1-2 HOURS WHILE AWAKE
--- NOTE | 2017-11-28 14:47 | NUR ---
CM NOTE INITIAL REVIEW FAXED TO [facility] [phone] EDDIE FENTONA # [phone]
--- NOTE | 2017-11-28 14:47 | NUR ---
11/28/2017 RD INITIAL ASSESSMENT COMPLETED PLEASE REFER TO NUTRITION ASSESSMENT UNDER CARE ACTIVITY FOR ESTIMATED NUTRITIONAL NEEDS. 1.PT TO CONTINUE RECEIVING 60 GM CCHO DIET AND ANTIHYPERGLYCEMIC MEDS FOR GLUCOSE CONTROL. 2.PT TO RECEIVE MNT RELATED TO DIABETES FROM RD (COMPLETED). 3. RD TO FOLLOW-UP IN 2-3 DAYS, PATIENT IS HIGH RISK. LORI ALONZO, RD
[2017-11-28 16:00] VITALS: BP 120/66
--- NOTE | 2017-11-28 17:40 | NUR ---
PATIENT SITTING ON SIDE OF BED EATING DINNER. NO SIGNS OF DISTRESS OR SOB NOTED. SAFETY PRECAUTIONS IN PLACE. WILL CONTINUE TO MONITOR PATIENT.
--- NOTE | 2017-11-28 19:22 | NUR ---
GAVE REPORT TO DATA CONSULTANT RN AT BEDSIDE FOR CONTINUITY OF CARE. PATIENT IN STABLE CONDITION.
--- NOTE | 2017-11-28 19:25 | NUR ---
RECEIVED PT IN STABLE CONDITION FROM AM NURSE. AWAKE,ALERT AND ORIENTED X4. ON TELE MONITOR. WITH O2 4L/NC. NO DISTRESS NOTED. WITH HL ON THE RT FA G`#18. CLEAR AND PATENT. AMBULATORY TO BATHROOM. NO C/O PAIN NOTED. PLAN OF CARE DISCUSSED AND VERBALIZED UNDERSTANDING. CALL LIGHT PLACED WITHIN EASY REACH. WILL CONTINUE TO MONITOR.
[2017-11-28 20:00] VITALS: BP 121/72
[2017-11-28] MEDS: MORPHINE SULFATE 2 MG/ML SYR IVP PRN (20:14)
[2017-11-28] MEDS: SPIRONOLACTONE 25 MG TAB PO SCH (21:24)
[2017-11-28] MEDS: hydrALAZINE 25 MG TAB PO SCH (21:24)
[2017-11-28] MEDS: TEMAZEPAM 15 MG CAP PO SCH (21:25)
--- NOTE | 2017-11-28 21:29 | NUR ---
BLOOD SUGAR WAS CHECKED RESULT 347. INSULIN COVERAGE SUBQ GIVEN ORDERED. PROVIDED WITH SOME SNACK. WILL CONTINUE TO MONITOR.
[2017-11-29 00:30] VITALS: BP 148/84
[2017-11-29] MEDS: ALBUTEROL 0.083% 2.5 MG/3 ML NEBU IH SCH ×4 (00:40→19:31)
[2017-11-29] MEDS: IPRATROPIUM 0.02% 0.5 MG/2.5 ML NEBU IH SCH ×4 (00:40→19:31)
[2017-11-29] MEDS: methylPREDNISolone SS 40 MG/ML VIAL IVP SCH ×3 (04:58→21:21)
[2017-11-29 05:00] VITALS: BP 138/81
--- NOTE | 2017-11-29 05:00 | NUR ---
ASLEEP. NO DISCOMFORT NOTED.
[2017-11-29] MEDS: BLOOD GLUCOSE MONITORING 1 DEV DEV FS SCH ×4 (06:14→21:28)
--- NOTE | 2017-11-29 06:14 | NUR ---
BLOOD SUGAR THSI AM 250. INSULIN COVERAGE GIVEN.
[2017-11-29] MEDS: INSULIN LISPRO SLIDING SCALE 100 UNITS/ML VIAL SUBQ PRN ×4 (06:15→21:40)
[2017-11-29] MEDS: LEVOTHYROXINE 0.075 MG TAB PO SCH (06:16)
--- NOTE | 2017-11-29 07:30 | NUR ---
RECEIVED REPORT FROM SUSAN RN FOR CONTINUITY OF CARE. PATIENT AWAKE SITTING AT THE EDGE OF THE BED . NO S/S OF RESP DISTRESS NOTED NO COMPLAIN OF PAIN ABLE TO MAKE NEEDS KNOWN .IV SITE RT FA GAUGE 20 INTACT AND PATENT. PLAN OF CARE DISCUSSED WITH THE PATIENT VITALS STABLE WILL CONTINUE TO MONITOR.
--- NOTE | 2017-11-29 07:30 | NUR ---
ENDORSED PT IN STABLE CONDITION TO AM NURSE.
--- NOTE | 2017-11-29 07:48 | NUR ---
NC TITRATED TO 3L. SPO2 94%. PT NOT IN RESPIRATORY DISTRESS OR SOB.
[2017-11-29] MEDS: PANTOPRAZOLE 40 MG TABEC PO SCH (07:58)
[2017-11-29 08:00] VITALS: BP 136/72
[2017-11-29] MEDS: ATORVASTATIN 20 MG TAB PO SCH (08:23)
[2017-11-29] MEDS: CARVEDILOL 3.125 MG TAB PO SCH ×2 (08:24→21:25)
[2017-11-29] MEDS: hydrALAZINE 25 MG TAB PO SCH ×2 (08:24→21:25)
[2017-11-29] MEDS: FUROSEMIDE 40 MG/4 ML VIAL IVP SCH (08:24)
[2017-11-29] MEDS: INSULIN DETEMIR 100 UNITS/ML 10 ML VIAL SUBQ SCH ×2 (08:29→21:30)
[2017-11-29] MEDS: ENOXAPARIN 30 MG/0.3 ML SYR SUBQ SCH (08:29)
--- NOTE | 2017-11-29 09:00 | NUR ---
DUE MEDS GIVEN TOLERATED WELL . ATE BREAKFAST, SELF MORNING CARE GIVEN TOLERATED WELL.
[2017-11-29 10:31] LABS: BASOPHILS # (AUTO) 0.1 K/uL (0.00-0.22); BASOPHILS % (AUTO) 0.5 % (0.0-2.0); EOSINOPHILS % (AUTO) 0.2 % (0.0-4.0); HEMATOCRIT 42.6 % (36-48); HEMOGLOBIN 13.4 g/dL (12.0-16.0); LYMPHOCYTES # (AUTO) 0.4 K/uL (2.5-16.5); LYMPHOCYTES % (AUTO) 3.4 % (20.5-51.1); MEAN CORPUSCULAR HEMOGLOBIN 30 pg (27-31); MEAN CORPUSCULAR HGB CONC 32 g/dL (33-37); MEAN CORPUSCULAR VOLUME 94 fL (80-94); MONOCYTES # (AUTO) 0.3 K/uL (0.8-1.0); MONOCYTES % (AUTO) 2.4 % (1.7-9.3); NEUTROPHILS % (AUTO) 93.5 % (42.2-75.2); PLATELET COUNT (AUTO) 170 K/uL (140-450); RED BLOOD CELL COUNT(AUTO) 4.54 MIL/uL (4.20-5.40); RED CELL DISTRIBUTION WIDTH 17.1 % (11.6-13.7); WHITE BLOOD COUNT (AUTO) 10.8 K/uL (4.8-10.8)
[2017-11-29 11:16] LABS: POTASSIUM 3.5 mmol/L (3.5-5.1)
[2017-11-29 11:17] LABS: ANION GAP 8.8 (8-16); CARBON DIOXIDE 33.7 mmol/L (21-32)
[2017-11-29 11:21] LABS: ALBUMIN 3.8 g/dL (3.4-5.0); TOTAL BILIRUBIN 0.6 mg/dL (0.0-1.0)
[2017-11-29] MEDS: AZITHROMYCIN 500 MG in DEXTROSE 5% 250 ML IV SCH (11:24)
--- NOTE | 2017-11-29 11:28 | NUR ---
CHECKED BS 295 SLIDING SCALE COVERAGE 6 UNITS HUMOLOG GIVEN . DUE MEDS GIVEN
[2017-11-29 12:00] VITALS: BP 138/80
--- NOTE | 2017-11-29 12:15 | NUR ---
ENDORSE THE CARE TO SHIRA GARRISON
--- NOTE | 2017-11-29 12:16 | NUR ---
RECEIVED REPORT FROM BLADIMIR CLEANING. PT IN STABLE CONDITION. WILL CONTINUE TO MONITOR PT.
--- NOTE | 2017-11-29 13:15 | NUR ---
R/T GIVING BREATHING TX. PT TOLERATING WELL. DR. OMLOS ALSO STOPPED BY AND SAW PT. PER MD, PT TO D/C O2 AND CONTINUOUS MONITORING. WILL MONITOR.
--- NOTE | 2017-11-29 14:38 | NUR ---
CM NOTE CONCURRENT REVIEW FAXED TO [facility] [phone] CM ADELSO # [phone]
[2017-11-29 16:00] VITALS: BP 137/89
--- NOTE | 2017-11-29 16:10 | NUR ---
PT OFF O2. DESATURATING AT 85% READMINISTERED O2 VIA NC. O2 SATURATING AT 96%. WE WILL TRY AGAIN PER DR. OLMOS.
[2017-11-29] MEDS: ACETAMINOPHEN 325 MG TAB PO PRN (19:21)
--- NOTE | 2017-11-29 19:21 | NUR ---
PT C/O BACK PAIN. ADMINISTERED TYLENOL REQUESTED. PT TOLERATED WELL. WILL CONTINUE TO MONITOR PT.
--- NOTE | 2017-11-29 19:33 | NUR ---
REVIEWED SUPPLEMENTAL OXYGEN STATUS WITH SHIRA/RN ROOM AIR 87% PER RN DR. ROSARIO OLMOS WANTED PATIENT TO BE OCCASIONALLY WEANED OFF POST HHN THERAPY PLACED PATIENT BACK ON HUMIDIFIED SUPPLEMENTAL OXYGEN AT 2 LPM VIA NC
[2017-11-29 20:00] VITALS: BP 134/78
--- NOTE | 2017-11-29 20:22 | NUR ---
ENDORSED PT TO THE GUM MACHINE FILLER NURSE. PT IN STABLE CONDITION.
--- NOTE | 2017-11-29 20:22 | NUR ---
RECEIVED PT IN STABLE CONDITION FROM AM NURSE. AWAKE,ALERT AND ORIENTED X4. ON TELE MONITOR. WITH O2 2L/NC. NO DISTRESS NOTED. WITH HL ON THE RT FA G`#18. CLEAR AND PATENT. AMBULATORY TO BATHROOM. NO C/O PAIN NOTED. PLAN OF CARE DISCUSSED AND VERBALIZED UNDERSTANDING. CALL LIGHT PLACED WITHIN EASY REACH. WILL CONTINUE TO MONITOR.
[2017-11-29] MEDS: SPIRONOLACTONE 25 MG TAB PO SCH (21:24)
[2017-11-29] MEDS: TEMAZEPAM 15 MG CAP PO SCH (21:25)
--- NOTE | 2017-11-29 21:43 | NUR ---
PT GIVEN SANDWICH TO EAT
[2017-11-30] VITALS: BP 146/83
--- NOTE | 2017-11-30 01:00 | NUR ---
PT FOUND WITH OXYGEN TAKEN OFF, O2 SAT 70% PUT OXYGEN BACK ON PT. O2 SAT BACK UP TO 91%
[2017-11-30] MEDS: IPRATROPIUM 0.02% 0.5 MG/2.5 ML NEBU IH SCH ×4 (01:52→19:57)
[2017-11-30] MEDS: ALBUTEROL 0.083% 2.5 MG/3 ML NEBU IH SCH ×4 (01:52→19:57)
[2017-11-30 04:00] VITALS: BP 147/74
[2017-11-30] MEDS: methylPREDNISolone SS 40 MG/ML VIAL IVP SCH ×3 (05:27→20:23)
[2017-11-30] MEDS: LEVOTHYROXINE 0.075 MG TAB PO SCH (05:47)
[2017-11-30] MEDS: PANTOPRAZOLE 40 MG TABEC PO SCH (06:34)
[2017-11-30] MEDS: BLOOD GLUCOSE MONITORING 1 DEV DEV FS SCH ×4 (06:34→20:41)
[2017-11-30] MEDS: INSULIN LISPRO SLIDING SCALE 100 UNITS/ML VIAL SUBQ PRN ×4 (06:40→20:45)
--- NOTE | 2017-11-30 07:30 | NUR ---
RECEIVED PT REPORT FROM REPLENISHMENT ASSOCIATE NURSE. PT AWAKE,ALERT AND ORIENTED X4. ON TELE MONITOR. WITH O2 2L/NC. NO DISTRESS NOTED. IV NOTED TO THE RIGHT AC 20G. CLEAR AND PATENT. AMBULATORY TO BATHROOM. NO C/O PAIN NOTED. PLAN OF CARE DISCUSSED AND VERBALIZED UNDERSTANDING. CALL LIGHT PLACED WITHIN EASY REACH. WILL CONTINUE TO MONITOR.
--- NOTE | 2017-11-30 07:36 | NUR ---
REPORT GIVEN TO GURJIT GARRISON FOR CONTINUITY OF CARE, PT IN STABLE CONDITION. NO S/S OF DISTRESS NOTED
[2017-11-30 07:54] LABS: BASOPHILS # (AUTO) 0.1 K/uL (0.00-0.22); BASOPHILS % (AUTO) 0.8 % (0.0-2.0); EOSINOPHILS # (AUTO) 0.1 K/uL (0-0.4); HEMATOCRIT 37.6 % (36-48); HEMOGLOBIN 12.4 g/dL (12.0-16.0); LYMPHOCYTES # (AUTO) 0.5 K/uL (2.5-16.5); LYMPHOCYTES % (AUTO) 6.2 % (20.5-51.1); MEAN CORPUSCULAR HEMOGLOBIN 31 pg (27-31); MEAN CORPUSCULAR HGB CONC 33 g/dL (33-37); MEAN CORPUSCULAR VOLUME 93 fL (80-94); MONOCYTES # (AUTO) 0.5 K/uL (0.8-1.0); MONOCYTES % (AUTO) 5.5 % (1.7-9.3); NEUTROPHILS # (AUTO) 7.2 K/uL (1.8-7.7); NEUTROPHILS % (AUTO) 86.5 % (42.2-75.2); PLATELET COUNT (AUTO) 161 K/uL (140-450); RED BLOOD CELL COUNT(AUTO) 4.07 MIL/uL (4.20-5.40); RED CELL DISTRIBUTION WIDTH 16.6 % (11.6-13.7); WHITE BLOOD COUNT (AUTO) 8.4 K/uL (4.8-10.8)
[2017-11-30 08:00] VITALS: BP 140/79
[2017-11-30 08:05] LABS: ALBUMIN 3.6 g/dL (3.4-5.0); ANION GAP 7.7 (8-16); CARBON DIOXIDE 38.9 mmol/L (21-32); CREATININE 0.8 mg/dL (0.6-1.3); POTASSIUM 3.6 mmol/L (3.5-5.1); TOTAL BILIRUBIN 0.5 mg/dL (0.0-1.0)
[2017-11-30] MEDS: CARVEDILOL 3.125 MG TAB PO SCH ×2 (08:58→20:24)
[2017-11-30] MEDS: ATORVASTATIN 20 MG TAB PO SCH (08:58)
[2017-11-30] MEDS: hydrALAZINE 25 MG TAB PO SCH ×2 (08:58→20:25)
[2017-11-30] MEDS: FUROSEMIDE 40 MG/4 ML VIAL IVP SCH (08:59)
[2017-11-30] MEDS: ENOXAPARIN 30 MG/0.3 ML SYR SUBQ SCH (09:13)
[2017-11-30] MEDS: INSULIN DETEMIR 100 UNITS/ML 10 ML VIAL SUBQ SCH ×2 (09:21→20:42)
[2017-11-30] MEDS: MORPHINE SULFATE 2 MG/ML SYR IVP PRN (09:24)
[2017-11-30] MEDS: AZITHROMYCIN 500 MG in DEXTROSE 5% 250 ML IV SCH (10:24)
--- NOTE | 2017-11-30 11:00 | NUR ---
PT STATED IV SITE IS TOO TIGHT. LOOKS SWELLING AND NO BLOOD RETURN. IV DC'ED. CATH TIP INTACT, WILL PUT IN A NEW IV SOON.
--- NOTE | 2017-11-30 11:30 | NUR ---
IV INSERT ON THE RIGHT HAND G20.
[2017-11-30 12:00] VITALS: BP 142/90
--- NOTE | 2017-11-30 13:42 | NUR ---
11/30/17 RD FOLLOW UP COMPLETED PLEASE REFER TO NUTRITION PROGRESS NOTE UNDER CARE ACTIVITY FOR ESTIMATED NUTRITION NEEDS. RD RECOMMENDATIONS: 1. CONTINUE CCHO 60 GM DIET TOLERATED. -NOTE PT WITH GOOD APPETITE AND CURRENT PO INTAKE IS MEETING 100% OF ESTIMATED NUTRITION NEEDS. 2. RD WILL F/U 7 DAYS; LOW RISK. VINICIUS DORANTES, RD
[2017-11-30 16:00] VITALS: BP 138/89
--- NOTE | 2017-11-30 16:00 | NUR ---
PT HAS BEEN SEEN BY DR OLMOS. PT NEEDS HOME O2 ARRANGEMENT.
--- NOTE | 2017-11-30 19:30 | NUR ---
REPORT GIVEN TO SOUND ASSISTANT RN FOR CONTINUITY OF CARE, PT IN STABLE CONDITION.
--- NOTE | 2017-11-30 19:31 | NUR ---
RECEIVED PT IN STABLE CONDITION FROM AM NURSE. AWAKE,ALERT AND ORIENTED X4. ON TELE MONITOR. WITH O2 2L/NC. NO DISTRESS NOTED. WITH HL ON THE RT H 20G. CLEAR AND PATENT. AMBULATORY TO BATHROOM. NO C/O PAIN NOTED. PLAN OF CARE DISCUSSED AND VERBALIZED UNDERSTANDING. CALL LIGHT PLACED WITHIN EASY REACH. WILL CONTINUE TO MONITOR.
[2017-11-30 20:00] VITALS: BP 138/78
[2017-11-30] MEDS: SPIRONOLACTONE 25 MG TAB PO SCH (20:24)
[2017-11-30] MEDS: TEMAZEPAM 15 MG CAP PO SCH (20:24)
--- NOTE | 2017-11-30 21:07 | NUR ---
PER DA/RN PATIENT STATES THAT "SHE DOESN'T WANT TO BE WOKEN UP FOR HHN THERAPY AT 0100 12/01/17"
[2017-12-01] VITALS: BP 136/73
[2017-12-01] MEDS: IPRATROPIUM 0.02% 0.5 MG/2.5 ML NEBU IH SCH ×3 (01:00→13:32)
[2017-12-01] MEDS: ALBUTEROL 0.083% 2.5 MG/3 ML NEBU IH SCH ×3 (01:00→13:32)
--- NOTE | 2017-12-01 03:05 | NUR ---
NOTED ON 11/30/2017 AT 2107 PATIENT REFUSED HHN THERAPY
[2017-12-01 04:00] VITALS: BP 145/74
[2017-12-01] MEDS: methylPREDNISolone SS 40 MG/ML VIAL IVP SCH ×2 (05:45→12:46)
[2017-12-01] MEDS: LEVOTHYROXINE 0.075 MG TAB PO SCH (05:45)
[2017-12-01] MEDS: INSULIN LISPRO SLIDING SCALE 100 UNITS/ML VIAL SUBQ PRN ×2 (06:44→12:55)
[2017-12-01] MEDS: PANTOPRAZOLE 40 MG TABEC PO SCH (06:45)
[2017-12-01] MEDS: BLOOD GLUCOSE MONITORING 1 DEV DEV FS SCH ×2 (06:45→12:19)
[2017-12-01] MEDS: MORPHINE SULFATE 2 MG/ML SYR IVP PRN (06:46)
--- NOTE | 2017-12-01 07:22 | NUR ---
GAVE REPORT TO GURJIT GARRISON FOR CONTINUITY OF CARE PT IN STABLE CONDITION. NO S/S OF DISTRESS NOTED
--- NOTE | 2017-12-01 07:30 | NUR ---
RECEIVED PT REPORT FROM ELECTRICIAN MASTER NURSE. PT AWAKE,ALERT AND ORIENTED X4. ON TELE MONITOR. WITH O2 2L/NC. NO DISTRESS NOTED. IV NOTED TO THE RIGHT HAND 20G. CLEAN, INTACT AND PATENT. AMBULATORY TO BATHROOM. NO C/O PAIN NOTED. PLAN OF CARE DISCUSSED AND VERBALIZED UNDERSTANDING. CALL LIGHT PLACED WITHIN EASY REACH. WILL CONTINUE TO MONITOR.
[2017-12-01 08:00] VITALS: BP 148/88
--- NOTE | 2017-12-01 08:00 | NUR ---
PT ON ROOM AIR, O2 SAT 85%. PLACED PT BACK ON 2L O2 VIA NC. O2 SAT RANGE BETWEEN 91-94% TAKEN AFTER 2 MIN.
[2017-12-01] MEDS: CARVEDILOL 3.125 MG TAB PO SCH (09:10)
[2017-12-01] MEDS: FUROSEMIDE 40 MG/4 ML VIAL IVP SCH (09:10)
[2017-12-01] MEDS: hydrALAZINE 25 MG TAB PO SCH (09:10)
[2017-12-01] MEDS: ATORVASTATIN 20 MG TAB PO SCH (09:11)
[2017-12-01] MEDS: ENOXAPARIN 30 MG/0.3 ML SYR SUBQ SCH (09:19)
[2017-12-01] MEDS: INSULIN DETEMIR 100 UNITS/ML 10 ML VIAL SUBQ SCH (10:03)
[2017-12-01] MEDS: AZITHROMYCIN 500 MG in DEXTROSE 5% 250 ML IV SCH (11:46)
[2017-12-01 12:00] VITALS: BP 125/90
--- NOTE | 2017-12-01 13:30 | NUR ---
OXYGEN TANK DELIVERED BY [facility]. CALLED [facility] WHO STATED HE WILL GO TO PT'S HOUSE TO DELIVER OXYGEN CONCENTRATOR MACHINE ONCE PT IS DISCHARGE FROM HOSPITAL.
[2017-12-01] MEDS ORDERED: PRED10TA5 PO (14:44)
--- NOTE | 2017-12-01 15:40 | NUR ---
PT DISCHARGED PER MD ORDER. DISCHARGE INSTRUCTION AND MEDICATION TEACHING GIVEN. PT VERBALIZED UNDERSTANDING. IV CATH DC'ED, TIP INTACT, PRESSURE APPLIED. PT DENIES SOB AND PAIN AT THIS TIME. PT DISCHARGED WITH PORTABLE OXYGEN TANK. PT IS AWARE TO CALL [facility] TO SET UP OXYGEN FOR HOME USE. PT LEFT IN STABLE CONDITION AND WITH ALL HER BELONGINGS. WHEELED PT OUT TO HER VEHICLE. NO S/S OF ACUTE DISTRESS NOTED.
[2017-12-01] MEDS ORDERED: INSULIN DETEMIR 100 UNITS/ML 10 ML VIAL SUBQ SCH (21:00)
== END 2017-12-01 15:40 | disposition home or self-care (01) | DRG 190 ==
LOC: MED 07:33 → MIC 09:14 → MTU 11-28 07:55
PROVIDERS: ADMIT Hospitalist; ATTEND Hospitalist
DX: I21.4 Non-ST elevation (NSTEMI) myocardial infarction (principal); J96.00 Acute respiratory failure, unspecified whether with hypoxia or hypercapnia; I11.0 Hypertensive heart disease with heart failure; I42.9 Cardiomyopathy, unspecified; J45.901 Unspecified asthma with (acute) exacerbation; I50.9 Heart failure, unspecified; E11.9 Type 2 diabetes mellitus without complications; E05.90 Thyrotoxicosis, unspecified without thyrotoxic crisis or storm; E87.6 Hypokalemia; E78.5 Hyperlipidemia, unspecified; E66.9 Obesity, unspecified; Z68.39 Body mass index [BMI] 39.0-39.9, adult; Z79.84 Long term (current) use of oral hypoglycemic drugs; Z79.4 Long term (current) use of insulin; Z79.899 Other long term (current) drug therapy; Z95.810 Presence of automatic (implantable) cardiac defibrillator; Z82.49 Family history of ischemic heart disease and other diseases of the circulatory system
CPT/HCPCS: 36415; 71045; 80053; 82550; 82553; 82948; 83735; 83880; 84132; 84484; 85025; 87081; 87804; 94640; 96374; 99291; J0456; J1650; J1815; J1940; J2270; J2920; J2930; J3480; J7030; J7060; J7613; J7620; J7644

== ENCOUNTER 2018-08-28 08:06 | Emergency (ER) | payer OTHER ==
[~2018-08-28] VITALS: Ht 157.5 cm; Wt 99.3 kg
[~2018-08-28 08:06] MED LIST changes: +ACET-2858 PO; +ALBU0.0912 IH; +BECL0.0815 INH; +DEP150I IM; -HUMSLIDE; -HYDR1TAB32 PO; +PRED10TA5 PO; +SPIR25TA PO; +TEMA30CA23 PO
[2018-08-28 08:14] VITALS: BP 145/92
--- NOTE | 2018-08-28 08:22 | NUR ---
PT AMBULATES TO BED 4
--- NOTE | 2018-08-28 08:23 | NUR ---
BIB SELF C/O SORE THROAT, COUGH X 2 WKS.HX: DM, HYPOTHYROID, ASTHMA . DENIES N/V/D; SKIN IS PINK/WARM/DRY; AAOX4 WITH EVEN AND STEADY GAIT; LUNGS CLEAR BL; HR EVEN AND REGULAR; PT DENIES ANY FEVER, CP, SOB, OR COUGH AT THIS TIME; PATIENT STATES PAIN OF 4/10 AT THIS TIME; VSS; PATIENT POSITIONED FOR COMFORT; HOB ELEVATED; BEDRAILS UP X2; BED DOWN. ER MD MADE AWARE OF PT STATUS.
--- NOTE | 2018-08-28 08:30 | NUR ---
DR CAMPOS EVALUATING AT BEDSIDE
[2018-08-28 09:00] VITALS: BP 138/81
== END 2018-08-28 09:00 | disposition home or self-care (01) ==
LOC: MED 08:06
DX: J02.9 Acute pharyngitis, unspecified (principal); J44.9 Chronic obstructive pulmonary disease, unspecified; E11.9 Type 2 diabetes mellitus without complications; I10 Essential (primary) hypertension; Z79.899 Other long term (current) drug therapy
CPT/HCPCS: 82948; 99283

== ENCOUNTER 2019-01-11 13:59 | Inpatient (IN) | payer OTHER ==
[~2019-01-11] VITALS: Ht 157.5 cm; Wt 105.2 kg
[~2019-01-11 13:59] MED LIST changes: -ACET-2858 PO; +HYDR-5092 PO
[2019-01-11 14:15] VITALS: BP 148/101
[2019-01-11] MEDS ORDERED: MAG SULF 2000 MG/WATER PREMIX 50 ML IV ONE (14:15)
[2019-01-11] MEDS ORDERED: methylPREDNISolone SS 125 MG in WATER STERILE 2 ML IV ONE (14:15)
[2019-01-11] MEDS ORDERED: ALBUTEROL SULFATE/IPRATROPIU 3 ML SOL IH ONE (14:15)
--- NOTE | 2019-01-11 14:17 | NUR ---
RT AT BEDSIDE
--- NOTE | 2019-01-11 14:20 | NUR ---
RESPIRATORY TX. IN PROGRESS
--- NOTE | 2019-01-11 14:20 | NUR ---
PATIENT SOB/WHEEZING IN MILD DISTRESS. DR. POND MADE AWARE. MONITORED. PER PATIENT BEEN SOB X2 DAYS AND IT GOT WORST TODAY,EVEN WITH THE ALBUTEROL INHALER. KEPT COMFORTABLE.
--- NOTE | 2019-01-11 14:25 | NUR ---
PATIENT FEELING MUCH BETTER
--- NOTE | 2019-01-11 14:30 | NUR ---
48 YEAR OLD ASTHMATIC PATIENT BIB SELF WITH C/O WORSENING SOB THE LAST 2 DAYS AGRAVATED WITH AMBULATION. HAS EXTERNAL LT CHEST DIFIBRILATOR SPEAKS SHORT SENTENCES, AUDIBLE EXP WHZ, INCREASE WOB, ACCESSORY MUSCLE USE VSS; PATIENT POSITIONED FOR COMFORT; HOB ELEVATED; BEDRAILS UP X1; BED DOWN. ER MD MADE AWARE OF PT STATUS.
--- NOTE | 2019-01-11 14:30 | NUR ---
O2 APPLIED 2LNC
--- NOTE | 2019-01-11 14:35 | NUR ---
LUNGS CLEAR TO AUSCULTATE
--- NOTE | 2019-01-11 15:00 | NUR ---
PATIENT IN NO DISTRESS.
[2019-01-11] MEDS ORDERED: FUROSEMIDE 40 MG/4 ML VIAL IVP ONE (15:15)
[2019-01-11 15:18] LABS: BASOPHILS % (AUTO) 0.6 % (0.0-2.0); EOSINOPHILS % (AUTO) 0.7 % (0.0-4.0); HEMATOCRIT 52.6 % (36-48); HEMOGLOBIN 16.4 g/dL (12.0-16.0); LYMPHOCYTES # (AUTO) 0.5 K/uL (2.5-16.5); MEAN CORPUSCULAR HEMOGLOBIN 30 pg (27-31); MEAN CORPUSCULAR HGB CONC 31 g/dL (33-37); MEAN CORPUSCULAR VOLUME 94.7 fL (80-94); MONOCYTES # (AUTO) 0.6 K/uL (0.8-1.0); MONOCYTES % (AUTO) 10.3 % (1.7-9.3); NEUTROPHILS # (AUTO) 4.5 K/uL (1.8-7.7); NEUTROPHILS % (AUTO) 79.4 % (42.2-75.2); PLATELET COUNT (AUTO) 138 K/uL (140-450); RED BLOOD CELL COUNT(AUTO) 5.55 MIL/uL (4.20-5.40); RED CELL DISTRIBUTION WIDTH 15.6 % (11.6-13.7); WHITE BLOOD COUNT (AUTO) 5.6 K/uL (4.8-10.8)
--- NOTE | 2019-01-11 15:20 | NUR ---
Dov mahoney in [facility] - 01/11/19 at 1525 by MADELEINE PATIENT FEELING MUCH BETTER/LESS SOB
--- NOTE | 2019-01-11 15:20 | NUR ---
Dov mahoney in [facility] - 01/11/19 at 1525 by MADELEINE RESP.TREATMENT IN PROGRESS
[2019-01-11 15:24] LABS: ANION GAP 7.3 (8-16); CARBON DIOXIDE 36.3 mmol/L (21-32); CREATININE 0.9 mg/dL (0.6-1.3); POTASSIUM 3.6 mmol/L (3.5-5.1)
--- NOTE | 2019-01-11 15:30 | NUR ---
CONTINUE TO MONITOR. FEELING MUCH BETTER. NO SOB. PATIENT WILL BE ADMITTED
[2019-01-11 15:39] LABS: ALBUMIN 3.3 g/dL (3.4-5.0); TOTAL BILIRUBIN 0.5 mg/dL (0.0-1.0)
[2019-01-11] MEDS ORDERED: INSULIN REGULAR, HUMAN 100 UNIT/ML VIAL IVP ONE (15:40)
[2019-01-11] MEDS ORDERED: ONDANSETRON 4 MG/2 ML VIAL IVP PRN (15:50)
--- NOTE | 2019-01-11 16:02 | NUR ---
Patient will be admitted to care of DR. LOMBARDI. Admited to TELE. Will go to room 120A. Belongings list completed. Report to JANETH GARRISON.
--- NOTE | 2019-01-11 16:02 | NUR ---
PT TAKEN TO TELE FLOOR BY RN CAROLYN AND CODY HU
--- NOTE | 2019-01-11 16:05 | NUR ---
RECEIVED PT FROM ER NURSE VIA [facility], PT IS AWAKE, ALERT AND AGE APPROPRIATE, AMBULATED TO THE BED, SIDE RAILS WERE UP AND CALL LIGHT WITHIN REACH, PT WAS MADE COMFORTABLE ON THE BED. PT HAS AN IV LINE ON THE RIGHT HAND G. 20 ON SALINE LOCK, INITIAL VITAL SIGN TAKEN AND RESULT IS BP IS 159/96, PULSE IS 89, RESPIRATION IS 22 AND O2 SATURATION IS 94%, PT WAS GIVEN O2 VIA NC AT 2L AND PT TOLERATING IT. PT DENIES PAIN AND NO SOB NOTED. WILL CONTINUE TO MONITOR PT.
--- NOTE | 2019-01-11 16:49 | NUR ---
CHARGE NURSE ANGELO REPORTED THAT LAB CALLED FOR A CRITICAL TROPONIN VALUE OF [phone]. WILL INFORM THE MD.
--- NOTE | 2019-01-11 16:50 | NUR ---
PAGED DR. LOMBARDI TO REPORT PT'S TROPONIN VALUE, AWAITING MD CALL BACK.
--- NOTE | 2019-01-11 17:03 | NUR ---
RECEIVED A CALL BACK FROM DR. LOMBARDI BUT THE LINE WAS DISCONNECTED, WAS NOT ABLE TO TELL MD THE CRITICAL TROPONIN VALUE, WILL CONTACT MD AGAIN.
--- NOTE | 2019-01-11 17:15 | NUR ---
RECEIVED A CALL FROM DR. LOMBARDI AND REPORTED TO MD THE TROPONIN LEVEL OF PT THAT IS 0.865, ACKNOWLEDGED AND MADE A TELEPHONE ORDER OF TWO MORE TROPONIN CHECKS FOR PT. ACKNOWLEDGED AND WILL CARRY OUT MD ORDER.
[2019-01-11] MEDS: FUROSEMIDE 40 MG/4 ML VIAL IVP SCH (17:23)
--- NOTE | 2019-01-11 17:24 | NUR ---
PT IS AWAKE AND VITAL SIGNS CHECKED PRIOR TO MEDICATION ADMINISTRATION VIA IV PUSH, V/S IS WITHIN NORMAL LIMIT. NO SIGN OF DISTRESS ,NOTED TO THE PT. WILL MONITOR PT.
--- NOTE | 2019-01-11 18:40 | NUR ---
PT DINNER WAS GIVEN AND PT TOLERATED THE DIET WELL WITH NO SOB NOTED.
[2019-01-11 18:43] VITALS: BP 159/96
--- NOTE | 2019-01-11 19:20 | NUR ---
ENDORSED PT TO PROPERTY MANAGEMENT SUPERVISOR NURSELYNNETTE FOR CONTINUITY OF CARE, PT IS STABLE AT THIS TIME.
[2019-01-11] MEDS: ALBUTEROL SULFATE/IPRATROPIU 3 ML SOL IH PRN ×2 (19:22→23:27)
--- NOTE | 2019-01-11 19:34 | NUR ---
RECEIVED PATIENT ON 2L NC, PULSE OX SAT 91%. PRN TX ADMINISTERED PER PATIENT COMPLAINTS OF "FEELING WHEEZY". TOLERATED TX WELL, NO ADVERSE SIDE EFFECTS. PATIENT STATES TO BE FEELING BETTER POST TREATMENT. PLACED BACK ON 2L NC. PULSE OX SAT 95%. NO RESPIRATORY DISTRESS NOTED AT THIS TIME. WILL CONTINUE TO MONITOR.
[2019-01-11 20:00] VITALS: BP 153/95
[2019-01-11] MEDS: SPIRONOLACTONE 25 MG TAB PO SCH (20:10)
[2019-01-11] MEDS: methylPREDNISolone SS 40 MG/ML VIAL IVP SCH (20:14)
[2019-01-11] MEDS: metFORMIN 500 MG TAB PO SCH (20:14)
[2019-01-11] MEDS: TEMAZEPAM 15 MG CAP PO SCH (20:15)
[2019-01-11] MEDS ORDERED: ZOLPIDEM 5 MG TAB PO PRN (21:00)
--- NOTE | 2019-01-11 21:00 | NUR ---
NON ADMINISTERED HEPARIN/ PLATELET LOW 138. PT IS AMBULATORY Addendum: 01/11/19 at 2342 by Hilaria Perrin RN PER DR. MARQUEZ TO CONTINUE TO GIVE THE HEPARIN DOSE TONIGHT DESPITE LOW PLATELET AT 138. WILL CARRY OUT ORDERS
--- NOTE | 2019-01-11 21:00 | NUR ---
UNAVAILABILITY OF LANTUS AT THE REF. WILL INFORM ELECTRIC SPOT WELDER
[2019-01-11] MEDS: INSULIN LANTUS 100 UNITS/ML 10 ML VIAL SUBQ SCH (22:20)
--- NOTE | 2019-01-11 22:53 | NUR ---
DESATURATED NOTED AT 83-85%. BP-167/103. INFORMED CHARGE NURSE. RT INFORMED. WILL INFORM TREE INSPECTOR FOR DR. LOMBARDI
--- NOTE | 2019-01-11 22:55 | NUR ---
PRESIDENT PRACTICING UROLOGIST CALLED UP. AWAITING REPLY. RT TRYING TO GET HOLD AND AWAITING CALL BACK
--- NOTE | 2019-01-11 23:10 | NUR ---
CALLED BY RN TO ASSESS PATIENT DUE TO DESATURATION. PRN BREATHING TREATMENT ADMINISTERED.
--- NOTE | 2019-01-11 23:11 | NUR ---
CONTACTED DR. MARQUEZ NEEDLE PUNCH MACHINE OPERATOR HELPER FOR DR. LOMBARDI. DR. MARQUEZ SAID TO PLACE PATIENT ON BIPAP OF SETTINGS 15/10 AND TO MAINTAIN A SATURATION >88%.
--- NOTE | 2019-01-11 23:49 | NUR ---
DR. MARQUEZ CONTACTED STATISTICAL ENGINEER FOR DR. LOMBARDI. INFORMED HIM THAT BLOOD SUGAR WAS 359MG/DL. ONLY LANTUS ROUTINE GIVEN ORDERED. HE SAID TO PUT THE ORDER FOR A BLOOD SUGAR MONITORING.
--- NOTE | 2019-01-11 23:50 | NUR ---
INFORMED DR. MARQUEZ ALSO THAT BP OF PT WENT UP EARLIER WHEN DESAT HAPPENED SIMULTANEOUSLY AT 163/103. HE SAID ITS OK. TO MONITOR BP.
--- NOTE | 2019-01-11 23:51 | NUR ---
INFORMED DR. MARQUEZ ALSO TROPONIN LEVEL WAS 0.800 NOW...CRITICAL LEVEL. PREVIOUS WAS 0.685. NO ORDERS FOR NOW
--- NOTE | 2019-01-11 23:58 | NUR ---
REASSESED BP, IT IS NOW 138/89
[2019-01-12] VITALS: BP 145/95
[2019-01-12] MEDS ORDERED: DEXTROSE 50% 50 ML SYR IVP PRN (00:10)
[2019-01-12] MEDS ORDERED: PNEUMOCOCCAL VACCINE 23 MCG/0.5 ML VIAL IMVAC PRN (00:45)
--- NOTE | 2019-01-12 03:40 | NUR ---
PRN TX ADMINISTERED. TOLERATED WELL. TOLERATING BIPAP. SKIN PROTECTIVE GEL IN PLACE. SKIN INTACT, NO REDNESS. WILL CONTINUE TO MONITOR.
[2019-01-12] MEDS: ALBUTEROL SULFATE/IPRATROPIU 3 ML SOL IH PRN ×4 (03:41→20:10)
[2019-01-12 04:00] VITALS: BP 132/93
--- NOTE | 2019-01-12 04:00 | NUR ---
1X B, NOTED, MAX AMOUNT, YELLOW, SOFT
[2019-01-12] MEDS: methylPREDNISolone SS 40 MG/ML VIAL IVP SCH ×3 (05:49→21:05)
--- NOTE | 2019-01-12 06:31 | NUR ---
RECEIVED PT ON ZHOU V60 ON DOCUMENTED SETTINGS, ALARMS ARE ON AND AUDIBLE PT IN HF WEARING MED SIZE MASK GEL UNDER MASK, BS EXP WHEEZING HHN GVIEN I\L WITH 3 MG DUONEB CONT. POX IN PLACE BIPAP PLUGGED INTO RED OUTLET
[2019-01-12] MEDS: INSULIN LISPRO SLIDING SCALE 100 UNITS/ML VIAL SUBQ PRN ×4 (06:51→21:26)
[2019-01-12] MEDS: BLOOD GLUCOSE MONITORING 1 DEV DEV FS SCH ×4 (06:52→21:02)
--- NOTE | 2019-01-12 07:00 | NUR ---
BLOOD SUGAR AT 200MG/DL GIVEN 2 UNITS OF HUMALOG.
--- NOTE | 2019-01-12 07:25 | NUR ---
ENDORSED TO AM SHIFT NURSE FOR CONTINUITY OF CARE. PT'S IN STABLE CONDITION AT THIS TIME
--- NOTE | 2019-01-12 07:30 | NUR ---
RECEIVED PT IN BED ASLEEP, ON BIPAP WITH 92%. PT AROUSABLE, ORIENTED X4. NO SOB NOTED, NO C/O PAIN AT THIS TIME. IV TO RT FOREARM PATENT AND INTACT. CHEST, DIMINISHED AIR ENTRY TO THE BASES. ABDOMEN SOFT, BOWEL SOUNDS PRESENT. INSTRUCTED PT TO CALL FOR ASSISTANCE, CALL LIGHT WITHIN REACH, VERBALIZED UNDERSTANDING.
[2019-01-12 07:49] LABS: BASOPHILS % (AUTO) 0.1 % (0.0-2.0); HEMATOCRIT 56.2 % (36-48); HEMOGLOBIN 17.2 g/dL (12.0-16.0); LYMPHOCYTES # (AUTO) 0.3 K/uL (2.5-16.5); LYMPHOCYTES % (AUTO) 3.9 % (20.5-51.1); MEAN CORPUSCULAR HEMOGLOBIN 30 pg (27-31); MEAN CORPUSCULAR HGB CONC 31 g/dL (33-37); MONOCYTES # (AUTO) 0.4 K/uL (0.8-1.0); MONOCYTES % (AUTO) 4.5 % (1.7-9.3); NEUTROPHILS # (AUTO) 7.8 K/uL (1.8-7.7); NEUTROPHILS % (AUTO) 91.5 % (42.2-75.2); PLATELET COUNT (AUTO) 131 K/uL (140-450); RED BLOOD CELL COUNT(AUTO) 5.85 MIL/uL (4.20-5.40); RED CELL DISTRIBUTION WIDTH 15.9 % (11.6-13.7); WHITE BLOOD COUNT (AUTO) 8.5 K/uL (4.8-10.8)
[2019-01-12 08:00] VITALS: BP 126/91
--- NOTE | 2019-01-12 08:20 | NUR ---
DECREASED FIO2 TO .40% ON BIPAP SPO2 90
--- NOTE | 2019-01-12 08:28 | NUR ---
PATIENT HAS BEEN SCREENED AND CATEGORIZED HIGH NUTRITION RISK. PATIENT WILL BE SEEN WITHIN 1-2 DAYS OF ADMISSION. 01/12/19-01/13/[address]
[2019-01-12 08:42] LABS: ALBUMIN 3.6 g/dL (3.4-5.0); ANION GAP 6.8 (8-16); POTASSIUM 5.2 mmol/L (3.5-5.1); TOTAL BILIRUBIN 0.5 mg/dL (0.0-1.0)
[2019-01-12] MEDS ORDERED: LEVOTHYROXINE 0.025 MG TAB PO SCH (09:00)
[2019-01-12] MEDS: DOCUSATE SODIUM 100 MG GELCAP PO SCH (09:00)
[2019-01-12 09:03] LABS: CARBON DIOXIDE 43.4 mmol/L (21-32)
[2019-01-12] MEDS: LEVOTHYROXINE 0.1 MG TAB PO SCH (09:58)
[2019-01-12] MEDS: metFORMIN 500 MG TAB PO SCH ×2 (09:58→21:07)
[2019-01-12] MEDS: FUROSEMIDE 40 MG/4 ML VIAL IVP SCH ×2 (10:00→18:17)
[2019-01-12] MEDS ORDERED: MAG SULF 2000 MG/WATER PREMIX 50 ML IV PRN (10:10)
--- NOTE | 2019-01-12 10:34 | NUR ---
SPUTUM SPECIMEN COLLECTED AND SENT TO LAB.
--- NOTE | 2019-01-12 11:14 | NUR ---
ABG RESULTS RELAYED TO DR. LOMBARDI OVER THE PHONE. NEW ORDERS GIVEN. RT TONI NOTIFIED.
--- NOTE | 2019-01-12 11:15 | NUR ---
BIPAP REPLACED PER DR HARJIT THORPE 07/07 RR 12 FIO2 .30 ALARMS ARE ON AND AUDIBLE MED SIZE MASK PT IN HF ALERT GEL UNDER MASK CONT POX IN PLACE 02 2L ON AND BEDSIDE FOR EATING
[2019-01-12 13:00] VITALS: BP 139/82
--- NOTE | 2019-01-12 14:30 | NUR ---
ECHOCARDIOGRAM ON GOING AT THE BEDSIDE.
[2019-01-12 16:00] VITALS: BP 144/54
--- NOTE | 2019-01-12 17:15 | NUR ---
CALLED DR. LOMBARDI WITH ABG RESULTS AND DR. LOMBARDI WILL CALL PULMONARY . Addendum: 01/12/19 at 1742 by Rula Ingram RT BLADIMIR MELTON
--- NOTE | 2019-01-12 17:20 | NUR ---
G TAKEN BY RT TONI, RESULTS RELAYED TO DR. LOMBARDI BY RT. NO NEW ORDERS FOR NOW.
--- NOTE | 2019-01-12 19:00 | NUR ---
PT AWAKE, SITTING AT THE BEDSIDE COMMODE. NO SOB NOTED. NO COMPLAINTS MADE. WILL ENDORSE TO NEXT SHIFT NURSE.
[2019-01-12 20:00] VITALS: BP 147/88
--- NOTE | 2019-01-12 20:00 | NUR ---
RECEIVED REPORT FROM BLADIMIR ESCAMILLA PT SEEN AMBULATING BACK FROM TOILET WITH STEADY GAIT, PUT BACK ON O2 NASAL CANNULA AT 4L, WHEEZING ON AUSCULTATION, VITAL SIGNS STABLE WITH 92% SAT, OCCASIONAL COUGH NOTED, BLE EDEMA NOTED MORE ON THE LEFT, PLAN OF CARE DISCUSSED, SAFETY MEASURES IN PLACE, CALL LIGHT WITHIN REACH.
[2019-01-12] MEDS: ACETAZOLAMIDE IV SCH (20:17)
[2019-01-12] MEDS: NACL 0.9% IV SCH (20:17)
--- NOTE | 2019-01-12 20:24 | NUR ---
RECEIVED PATIENT ON 4L NC WITH BUBBLE HUMIDIFIER. PULSE OX SAT 94%. PATIENT ON CONTINUOUS PULSE OX. CONTINUOUS PULSE OX ALARMS ON AND FUNCTIONING. PRN TX ADMINISTERED DUE TO BREATH SOUNDS BEING DIMINISHED WITH EXPIRATORY WHEEZING AND PATIENT STATING TO BE "FELLING WHEEZY". PATIENT TOLERATED TX WELL, NO ADVERSE SIDE EFFECTS. PATIENT STATES TO BE FEELING BETTER POST TX. PLACED PATIENT BACK ON 4L NC. NO ACUTE RESPIRATORY DISTRESS NOTED AT THIS TIME. WILL CONTINUE TO MONITOR.
[2019-01-12] MEDS: CARVEDILOL 3.125 MG TAB PO SCH (21:08)
[2019-01-12] MEDS: ATORVASTATIN 80 MG TAB PO SCH (21:08)
[2019-01-12] MEDS: TEMAZEPAM 15 MG CAP PO SCH (21:08)
[2019-01-12] MEDS: SPIRONOLACTONE 25 MG TAB PO SCH (21:09)
[2019-01-12] MEDS: INSULIN LANTUS 100 UNITS/ML 10 ML VIAL SUBQ SCH (21:23)
[2019-01-12] MEDS: guaiFENesin/CODEINE 100/10MG 5 ML UDC PO PRN (22:01)
--- NOTE | 2019-01-12 22:10 | NUR ---
PT VOIDED FREELY USING BEDSIDE COMMODE, SLIGHT SOB ON EXERTION, MEDICATED PRN FOR COUGH, MONITORED CLOSELY.
[2019-01-13] VITALS (8 sets, daily range): BP systolic 96–142; BP diastolic 61–93
[2019-01-13] MEDS: ALBUTEROL SULFATE/IPRATROPIU 3 ML SOL IH PRN ×4 (01:38→23:35)
--- NOTE | 2019-01-13 01:41 | NUR ---
PT AWAKE SITTING ON SIDE OF BED, WHEEZING NOTED, PAGED RT, BREATHING TX GIVEN BY RT ANDRES, CONTINUE TO MONITOR CLOSELY.
--- NOTE | 2019-01-13 01:54 | NUR ---
PRN BREATHING TREATMENT ADMINISTERED DUE TO PATIENT STATING TO BE FEELING SHORT OF BREATH. BREATH SOUNDS DIMINISHED WITH FAINT EXPIRATORY WHEEZE. TOLERATED TREATMENT WELL. NO ADVERSE SIDE EFFECTS. PLACED PATIENT BACK ON 4L NC. NO RESPIRATORY DISTRESS NOTED. WILL CONTINUE TO MONITOR.
--- NOTE | 2019-01-13 04:00 | NUR ---
PT SLEEPING, EASILY AROUSABLE, VITAL SIGNS STABLE, NO RESP DISTRESS NOTED WHILE AT REST AND SLEEPING, MONITORED CLOSELY.
[2019-01-13] MEDS: methylPREDNISolone SS 40 MG/ML VIAL IVP SCH ×3 (04:17→20:56)
[2019-01-13] MEDS: PANTOPRAZOLE 40 MG TABEC PO SCH (05:42)
[2019-01-13] MEDS: INSULIN LISPRO SLIDING SCALE 100 UNITS/ML VIAL SUBQ PRN ×3 (05:48→17:40)
--- NOTE | 2019-01-13 06:00 | NUR ---
BLOOD SUGAR CHECKED WITH 345 RESULT, COVERAGE GIVEN, DUE PO PROTONIX ADMINISTERED, NO RESP DISTRESS AT THIS TIME, CONTINUE TO MONITOR CLOSELY.
[2019-01-13] MEDS: BLOOD GLUCOSE MONITORING 1 DEV DEV FS SCH ×4 (06:31→20:58)
--- NOTE | 2019-01-13 07:27 | NUR ---
PT SLEEPING, EASILY AROUSABLE, NO DISTRESS NOTED, BEDSIDE REPORT GIVEN TO RN RIC FOR CONTINUITY OF CARE.
--- NOTE | 2019-01-13 07:30 | NUR ---
RECEIVED PT AAOX4. NO SOB NOTED, ON 3LPM OXYGEN VIA NASAL CANNULA WITH O2 SATS AT 94%. NO C/O PAIN AT THIS TIME. IV TO RT FOREARM PATENT AND INTACT. CHEST, DIMINISHED AIR ENTRY TO THE BASES, WHEEZING HEARD BILATERALLY. ABDOMEN SOFT, BOWEL SOUNDS PRESENT. INSTRUCTED PT TO CALL FOR ASSISTANCE, CALL LIGHT WITHIN REACH, VERBALIZED UNDERSTANDING.
[2019-01-13 08:33] LABS: MONOCYTES # (AUTO) 0.3 K/uL (0.8-1.0); NEUTROPHILS # (AUTO) 7.8 K/uL (1.8-7.7); PLATELET COUNT (AUTO) 144 K/uL (140-450); WHITE BLOOD COUNT (AUTO) 8.3 K/uL (4.8-10.8)
--- NOTE | 2019-01-13 08:36 | NUR ---
CALLED [facility] TO MAKE A FOLLOW UP APPOINTMENT WITH DR. DENICE NG. I SPOKE WITH ROSSY AND SHE SAID THAT THIS PATIENT DOES GO THERE. THE DOCTOR THAT FOLLOWS UP ON POST HOSPITALIZATION IS DR. DOWNING. I MADE AN [id number] WITH DR. DOWNING FOR Saturday01/11/19 AT 3P.M. ADDRESS [place] [employer] PHONE, . I GAVE THE APPOINTMENT TO THE PATIENT. Addendum: 01/13/19 at 1104 by Deonna Sky CM CORRECTION OF FOLLOW UP APPOINTMENT, IS 01/21/19 AT 3P.M.
[2019-01-13 08:37] LABS: BASOPHILS % (AUTO) 0.2 % (0.0-2.0); HEMATOCRIT 52.4 % (36-48); LYMPHOCYTES # (AUTO) 0.3 K/uL (2.5-16.5); LYMPHOCYTES % (AUTO) 3.2 % (20.5-51.1); MEAN CORPUSCULAR HEMOGLOBIN 30 pg (27-31); MEAN CORPUSCULAR HGB CONC 30 g/dL (33-37); MEAN CORPUSCULAR VOLUME 96.8 fL (80-94); MONOCYTES % (AUTO) 3.1 % (1.7-9.3); NEUTROPHILS % (AUTO) 93.5 % (42.2-75.2); RED BLOOD CELL COUNT(AUTO) 5.41 MIL/uL (4.20-5.40); RED CELL DISTRIBUTION WIDTH 15.8 % (11.6-13.7)
[2019-01-13] MEDS: DOCUSATE SODIUM 100 MG GELCAP PO SCH (09:00)
[2019-01-13 09:43] LABS: ANION GAP 7.2 (8-16); CARBON DIOXIDE 37.9 mmol/L (21-32); CREATININE 1.1 mg/dL (0.6-1.3); POTASSIUM 5.1 mmol/L (3.5-5.1)
[2019-01-13 09:44] LABS: ALBUMIN 3.5 g/dL (3.4-5.0); TOTAL BILIRUBIN 0.4 mg/dL (0.0-1.0)
--- NOTE | 2019-01-13 09:45 | NUR ---
NOTED PT DROWSY, EASILY AROUSABLE, ORIENTED X4. ON 3LPM NASAL CANNULA WITH O2 SATS AT 93%. DR. LOMBARDI IS AT THE BEDSIDE AND NOTIFIED. NEW ORDERS GIVEN.
[2019-01-13] MEDS: LISINOPRIL 20 MG TAB PO SCH (10:05)
[2019-01-13] MEDS: metFORMIN 500 MG TAB PO SCH ×2 (10:05→20:58)
[2019-01-13] MEDS: LEVOTHYROXINE 0.1 MG TAB PO SCH (10:06)
[2019-01-13] MEDS: CARVEDILOL 3.125 MG TAB PO SCH ×2 (10:06→20:57)
[2019-01-13] MEDS: FUROSEMIDE 40 MG/4 ML VIAL IVP SCH ×2 (10:07→17:00)
[2019-01-13] MEDS: guaiFENesin/CODEINE 100/10MG 5 ML UDC PO PRN (10:08)
[2019-01-13] MEDS ORDERED: BUDESONIDE 0.25 MG/2 ML NEBU INH SCH ×2 (10:15→10:40)
--- NOTE | 2019-01-13 10:22 | NUR ---
RECEIVED ORDER FOR O2 FOR HOME LEFT MESSAGE WITH WESTLEY AT [facility], [phone] AND FAXED FACE SHEET, ORDER, ABG'S AND H&P TO HER AT [phone].
--- NOTE | 2019-01-13 10:53 | NUR ---
ABG TAKEN BY RT MUÑOZ. PAGED DR. LOMBARDI FOR THE RESULTS, AWAITING FOR CALL BACK.
--- NOTE | 2019-01-13 11:03 | NUR ---
increased fio2 to 40% and rn vinny notified
--- NOTE | 2019-01-13 11:31 | NUR ---
RECEIVED A CALL FROM WESTLEY FROM [facility]. SHE SAID TO TRY FOR HOME O2, BIM DRUG, [facility]. I CALLED ELLIS AT [facility] AND FAXED ORDER, ETC TO HIM AT [phone]. PHONE [phone]
[2019-01-13] MEDS ORDERED: ALBUTEROL SULFATE/IPRATROPIU 3 ML SOL IH SCH (13:00)
--- NOTE | 2019-01-13 13:14 | NUR ---
2 RD INITIAL ASSESSMENT COMPLETED PLEASE REFER TO NUTRITION ASSESSMENT UNDER CARE ACTIVITY FOR ESTIMATED NUTRITIONAL NEEDS. 1. RECOMMEND 60 GM CCHO + CARDIAC DIET 2. RD PROVIDED HEART HEALTHY NUTRITION THERAPY 3. RD TO FOLLOW-UP 5-7 DAYS, LOW RISK TABATHA TORRES, RD
--- NOTE | 2019-01-13 13:26 | NUR ---
bipap change 16\10 rr 16 fio2 40%
--- NOTE | 2019-01-13 14:16 | NUR ---
RECEIVED ORDER FOR EPAP. FAXED ORDER TO [facility], AND TO [facility] [phone]
--- NOTE | 2019-01-13 15:52 | NUR ---
ABG TAKEN BY RT MUÑOZ. PAGED DR. MARQUEZ FOR THE RESULTS, EXCHANGE STATED THAT IT IS DR. LIN ASSIGNED FOR [facility] THIS WEEK. AWAITING FOR CALL BACK.
--- NOTE | 2019-01-13 16:14 | NUR ---
I CALLED WESTLEY FROM [facility],[phone], ABOUT THE O2 AND EPAP AND SLEEP STUDY. WESTLEY SAID THAT THE PATIENT HAD A SLEEP STUDY IN JUNE AT [facility] SLEEP [facility]UD[facility] AND THEY AUTHORIZED THE CPAP/BIPAP. I SPOKE WITH THE PATIENT AND SHE SAID THAT SHE HAS NO CPAP/BIPAP AT HOME, BUT DID HAVE THE SLEEP STUDY.. WESTLEY AT [facility] SAID THAT THE PATIENT NEEDS TO FOLLOW UP WITH [facility]. SLEEP STUDY TO FIND OUT ABOUT THE CPAP/BIPAP/ WESTLEY FROM [facility] WILL AUTH THE OXYGEN. PER WESTLEY, PATIENT SHOULD CALL [facility] SLEEP STUDY , . MULTIPLE DME HAS BEEN APPROVED SINCE OCTOBER INCLUDING BIPAP/CPAP. PLUS OTHER THINGS RECOMMENDED BY THE SLEEP STUDY. DX FROM SLEEP STUDY, OBSTRUCTIVE SLEEP APNEA. FOR OTHER QUESTIONS, PATIENT SHOULD CALL THE [facility] MEMBER SERVICE NUMBER ON BACK OF INSURANCE CARD. Addendum: 01/13/19 at 1709 by Deonna Sky CM I TOLD THE PATIENT TO FOLLOW UP WITH THE SLEEP STUDY, AND FIND OUT WHAT HAPPENED WITH THE THINGS THAT THE SLEEP STUDY RECOMMENDED AND THAT WAS APPROVED IN October,. I GAVE HE THE PHONE NUMBER.
--- NOTE | 2019-01-13 16:41 | NUR ---
DR. LIN HAS BEEN CALLED THREE TIMES AND HE HAS NOT CALLED BACK TO BE INFORMED OF ABG RESULTS. PT IS SITTING ON EDGE OF BED AND IS AWAKE. PT HAS STATED TO MYSELF AND BLADIMIR LARIOS THAT SHE DOES NOT WANT TO BE INTUBATED.
--- NOTE | 2019-01-13 17:00 | NUR ---
DR. LIN CAME TO SEE PT. NEW ORDERS GIVEN .
--- NOTE | 2019-01-13 18:25 | NUR ---
PT EATING DINNER, ON 3LPM OXYGEN VIA NASAL CANNULA. NO SOB NOTED. WITH O2 SATS BETWEEN 88-90%. WILL CONTINUE TO MONITOR.
--- NOTE | 2019-01-13 19:05 | NUR ---
TOLLED THE RN TO [facility], AND I SPOKE WITH DR HOOD ABOUT THE PT BIPAP ORDER AND CONDITION, BECAUSE PT RETURNED VT WERE VERY SMALL, LIKE 278, 260 ON BIPAP 09/09, AND ABG WAS , HIGH PCO2 AND LOW PH. PT IS OVER WEIGHT WITH HIGH PCO2 AND LOW RETURNED TIDAL VOLUME, I WANT TO CHANGE THE BIPAP ORDER. AND, PER DR EASTMAN, TO 12/05, ABFG IN ONE HOUR
[2019-01-13] MEDS: BUDESONIDE 0.25 MG/2 ML NEBU INH SCH (19:11)
[2019-01-13] MEDS: ALBUTEROL SULFATE/IPRATROPIU 3 ML SOL IH SCH ×2 (19:11→22:57)
--- NOTE | 2019-01-13 19:20 | NUR ---
AT 1900 HRS: TALIA RT CALLED DR. MACIAS TO CLARIFY WITH THE BIPAP SETTING. DR. MACIAS STSTE TO TRANSFER PT TO ICU. [facility]HEL [facility] NOTIFIED. PT IS GOING TO ICU BED 3. REPORT GIVEN TO TAL-AIRPLANE CHARTER CLERK AT THE BEDSIDE. PT IS STILL DROWSY, EASILY AROUSABLE, ORIENTED X4. ON BIPAP AT 30% FIO2 WITH O2 SATS OF 97%. NOTIFIED PT REGARDING THE TRANSFER, VERBALIZED UNDERSTANDING.
--- NOTE | 2019-01-13 19:30 | NUR ---
RECEIVED REPORT FROM AM SHIFT. PT AFEBRILE. ON BIPAP. AOX4. ABLE TO VERBALIZE NEEDS. FOLLOWS COMMANDS. LABORED BREATHING. LUNG SOUNDS DIMINISHED BILATERALLY. SR ON MONITOR. PITTING EDEMA NOTED TO LOWER EXTREMITIES. ON CCHO DIET. ABD DISTENDED. CONTINENT TO BOWEL AND BLADDER. IV SITE R FA. 20G. SITE INTACT. ACTIVITY TOLERATED. SKIN INTACT. BED IN LOWEST POSITION. CALL LIGHT WITHIN REACH. WILL CONTINUE TO MONITOR
[2019-01-13] MEDS: ACETAZOLAMIDE IV SCH (20:55)
[2019-01-13] MEDS: NACL 0.9% IV SCH (20:55)
[2019-01-13] MEDS: TEMAZEPAM 15 MG CAP PO SCH (20:57)
[2019-01-13] MEDS: SPIRONOLACTONE 25 MG TAB PO SCH (20:57)
[2019-01-13] MEDS: INSULIN LANTUS 100 UNITS/ML 10 ML VIAL SUBQ SCH (21:00)
[2019-01-13] MEDS: ATORVASTATIN 80 MG TAB PO SCH (21:00)
--- NOTE | 2019-01-13 22:15 | NUR ---
SPOKE WITH DR. BUTCHER ABOUT ABG RESULTS AND GAVE ORDER TO INCREASE IPAP+22, IPAP+8, RATE 22, SAO2 GREATER THAN 90%
--- NOTE | 2019-01-13 23:00 | NUR ---
LEFT SIDE B/S ABSENT, GAVE 2-DUONEB 6MG HHN TREATMENT AND B/S WHEEZING. AT 2315 GAVE ADDITIONAL 2 DUONEBS 6MG, IMPROVED AERATION BUT STILL WHEEZING. WILL PLACE CALL TO DR. BUTCHER
--- NOTE | 2019-01-13 23:01 | NUR ---
RT AT BEDSIDE AT THIS TIME
--- NOTE | 2019-01-13 23:17 | NUR ---
CXR AT BEDSIDE AT THIS TIME
--- NOTE | 2019-01-13 23:44 | NUR ---
RT AT BEDSIDE AT THIS TIME.
[2019-01-14] VITALS (22 sets, daily range): BP systolic 103–132; BP diastolic 64–88
--- NOTE | 2019-01-14 00:06 | NUR ---
SPOKE WITH DR. BUTCHER AND STATED TO MAINTAIN CURRENT HHN TREATMENT AND GIVE PRN NEEDED FOR WHEEZING
--- NOTE | 2019-01-14 01:15 | NUR ---
PATIENT DONE WITH LUNCH AND NOW BACK ON BIPAP SAME SETTINGS. PATIENT HAD 1 BM SOFT BROWN STOOL IN THE BED MEHTA AND ALSO URINATED. PERINEAL ANAL CARE DONE AND LINENS CHANGED Addendum: 01/14/19 at 1538 by Kadie Ramirez RN DISREGARD ABOVE NOTE. WRONG TIME
--- NOTE | 2019-01-14 01:20 | NUR ---
PT MOTHER EVANGELIST KELLY CALLED. UPDATED ON PTS CURRENT CONDITION.
[2019-01-14] MEDS: ALBUTEROL SULFATE/IPRATROPIU 3 ML SOL IH PRN ×2 (01:36→08:00)
[2019-01-14] MEDS: ALBUTEROL SULFATE/IPRATROPIU 3 ML SOL IH SCH ×6 (02:48→23:46)
--- NOTE | 2019-01-14 03:24 | NUR ---
PT RESTING QUIETLY AT THIS TIME ON BIPAP. NO SIGNS OF ACUTE DISTRESS NOTED.
[2019-01-14] MEDS: methylPREDNISolone SS 40 MG/ML VIAL IVP SCH ×3 (04:30→22:32)
--- NOTE | 2019-01-14 04:50 | NUR ---
LAB AT BEDSIDE AT THIS TIME FOR AM BLOOD DRAWS
--- NOTE | 2019-01-14 05:03 | NUR ---
RT AT BEDSIDE AT THIS TIME
[2019-01-14] MEDS: PANTOPRAZOLE 40 MG TABEC PO SCH (05:38)
[2019-01-14 06:06] LABS: ALBUMIN 3.5 g/dL (3.4-5.0); ANION GAP 4.7 (8-16); CREATININE 1.3 mg/dL (0.6-1.3); POTASSIUM 4.7 mmol/L (3.5-5.1); TOTAL BILIRUBIN 0.5 mg/dL (0.0-1.0)
--- NOTE | 2019-01-14 06:13 | NUR ---
ENDORSED CARE TO INCOMING SHIFT FOR CONTINUITY OF CARE. PT RESTING QUIETLY. DENIES PAIN. BED IN LOWEST POSITION. CALL LIGHT WITHIN REACH.
--- NOTE | 2019-01-14 06:26 | NUR ---
RECEIVED CRITICAL LAB RESULT OF CO2: 44.O FROM 37.[address] CISNEROS REGARDING LAB VALUE. WILL FOLLOW UP ANY ADDITIONAL ORDERS.
[2019-01-14] MEDS: BLOOD GLUCOSE MONITORING 1 DEV DEV FS SCH ×4 (06:32→21:15)
[2019-01-14 07:22] LABS: WHITE BLOOD COUNT (AUTO) 8.1 K/uL (4.8-10.8)
[2019-01-14 07:23] LABS: HEMATOCRIT 53.1 % (36-48); MEAN CORPUSCULAR HEMOGLOBIN 30 pg (27-31); MEAN CORPUSCULAR HGB CONC 30 g/dL (33-37); MEAN CORPUSCULAR VOLUME 97.6 fL (80-94); PLATELET COUNT (AUTO) 134 K/uL (140-450); RED BLOOD CELL COUNT(AUTO) 5.44 MIL/uL (4.20-5.40)
--- NOTE | 2019-01-14 07:24 | NUR ---
CALLED [facility] [phone] EXCHANGE SHIRA TO CALL MD DR KALEB LIN
--- NOTE | 2019-01-14 07:28 | NUR ---
CALL BACK FROM DR KALEB LIN REVIEWED ABG SAMPLE REPORT NO NEW ORDERS
--- NOTE | 2019-01-14 07:40 | NUR ---
RECEIVED ON A [employer] V60 BIPAP PLUGGED INTO RED OUTLET TOLERATING WELL WITHOUT ADVERSE REACTIONS NOTED TO A SMALL FACIAL MASK SECURED WITH HEAD GEAR RESTING WELL
[2019-01-14 07:41] LABS: LYMPHOCYTES % (MANUAL) 2 % (20-46); MONOCYTES % (MANUAL) 4 % (5-12)
[2019-01-14] MEDS: BUDESONIDE 0.25 MG/2 ML NEBU INH SCH ×2 (08:00→19:22)
--- NOTE | 2019-01-14 08:00 | NUR ---
PATIENT AWAKE ALERT ORIENTED TO PERSON, PLACE, TIME, SITUATION. ON BIPAP FIO2 40% IPAP22 EPAP8 RATE 20, MILD WHEEZING ON AUSCULTATION THROUGH ANTERIOR LUNG GARCIA, SO2 95%, SINUS RHYTHM ON MONITOR WITH GAUGE 20 PERIPHERAL LINE AT RIGHT FOREARM-SALINE LOCKED, VOIDING FREELY, SKIN INTACT, WITH MILD REDNESS IN LEFT LOWER LEG NOTED, GENERALIZED NON PITTING EDEMA NOTED
[2019-01-14] MEDS: LEVOTHYROXINE 0.1 MG TAB PO SCH (08:35)
[2019-01-14] MEDS: FUROSEMIDE 40 MG/4 ML VIAL IVP SCH ×2 (08:35→17:18)
[2019-01-14] MEDS: metFORMIN 500 MG TAB PO SCH ×2 (08:35→23:55)
[2019-01-14] MEDS: CARVEDILOL 3.125 MG TAB PO SCH ×2 (08:36→22:31)
[2019-01-14] MEDS: DOCUSATE SODIUM 100 MG GELCAP PO SCH (08:36)
--- NOTE | 2019-01-14 08:53 | NUR ---
DR. LIN AT BEDSIDE. PATIENT REFUSED [place] CATHETER INSERTION. INFORMED PATIENT SHE WILL BE GETTING LASIX IV AND SHE WILL BE URINATING FREQUENTLY AND MOVING WITH BEDPAN AND MIGHT GET SHORT OF BREATH
--- NOTE | 2019-01-14 08:55 | NUR ---
DR. LIN AWARE OF TODAY'S PLATELET AND OK TO GIVE HEAPRIN SUBCUTANEOUS, ALSO MADE AWARE PATIENT HAS DIET ORDERED AND RN WILL TAKE OFF BIPAP MASK AND REPLACE WITH OXYMIZER TOLERATED BY PATIENT FOR A FEW MINUTES TO HAVE MEAL AND TAKE HER PILLS
--- NOTE | 2019-01-14 09:15 | NUR ---
MORNING PILLS GIVEN. PATIENT TOLERATED. BIPAP MASK REMOVED FOR A FEW SECONDS. PATIENT SO2 92-95%. NO INCIDENCE
[2019-01-14] MEDS: LISINOPRIL 20 MG TAB PO SCH (09:30)
[2019-01-14] MEDS: INSULIN LISPRO SLIDING SCALE 100 UNITS/ML VIAL SUBQ PRN ×3 (12:30→21:15)
--- NOTE | 2019-01-14 12:30 | NUR ---
PATIENT HAVING HER LUNCH INDEPENDENTLY, HEAD OF BED UP ALMOST 90 DEGREES, PLACE PATIENT ON OXYMIZER O2 5L/MIN. PATIENT SO2 90-95% THE WHOLE TIME. NOT IN RESPIRATORY DISTRESS
--- NOTE | 2019-01-14 13:15 | NUR ---
PATIENT DONE WITH LUNCH AND NOW BACK ON BIPAP SAME SETTINGS. PATIENT HAD 1 BM SOFT BROWN STOOL IN THE BED MEHTA AND ALSO URINATED. PERINEAL ANAL CARE DONE AND LINENS CHANGED
--- NOTE | 2019-01-14 17:45 | NUR ---
PATIENT HAVING DINNER INDEPENDENTLY. HEAD OF BED UP 90 DEGREES. ON OXYMIZER O2 5L/MIN. SO2 90-94%
--- NOTE | 2019-01-14 18:00 | NUR ---
PATIENT BACK TO BIPAP, PM CARE RENDERED. PATIENT TOLERATED
--- NOTE | 2019-01-14 19:00 | NUR ---
Patient placed in bedpan per her request. Report given to night RN
[2019-01-14] MEDS: TEMAZEPAM 15 MG CAP PO SCH (21:00)
[2019-01-14] MEDS: ATORVASTATIN 20 MG TAB PO SCH (22:30)
[2019-01-14] MEDS: INSULIN LANTUS 100 UNITS/ML 10 ML VIAL SUBQ SCH (22:42)
[2019-01-14] MEDS: NACL 0.9% IV SCH (23:03)
[2019-01-14] MEDS: ACETAZOLAMIDE IV SCH (23:03)
[2019-01-14] MEDS: SPIRONOLACTONE 25 MG TAB PO SCH (23:06)
[2019-01-15] VITALS (16 sets, daily range): BP systolic 116–142; BP diastolic 68–99
[2019-01-15] MEDS ORDERED: metFORMIN 500 MG TAB ONE (00:03)
[2019-01-15] MEDS: guaiFENesin/CODEINE 100/10MG 5 ML UDC PO PRN ×2 (00:19→21:13)
[2019-01-15] MEDS: ALBUTEROL SULFATE/IPRATROPIU 3 ML SOL IH SCH ×6 (03:15→23:55)
[2019-01-15] MEDS: methylPREDNISolone SS 40 MG/ML VIAL IVP SCH ×3 (05:52→21:15)
[2019-01-15 05:59] LABS: ALBUMIN 3.1 g/dL (3.4-5.0); ANION GAP 7.3 (8-16); CARBON DIOXIDE 38.6 mmol/L (21-32); CREATININE 1.1 mg/dL (0.6-1.3); POTASSIUM 4.9 mmol/L (3.5-5.1); TOTAL BILIRUBIN 0.6 mg/dL (0.0-1.0)
[2019-01-15 06:22] LABS: BASOPHILS % (AUTO) 0.1 % (0.0-2.0); HEMATOCRIT 51.7 % (36-48); LYMPHOCYTES # (AUTO) 0.1 K/uL (2.5-16.5); LYMPHOCYTES % (AUTO) 2.2 % (20.5-51.1); MEAN CORPUSCULAR HEMOGLOBIN 30 pg (27-31); MEAN CORPUSCULAR HGB CONC 31 g/dL (33-37); MEAN CORPUSCULAR VOLUME 95.4 fL (80-94); MONOCYTES # (AUTO) 0.3 K/uL (0.8-1.0); MONOCYTES % (AUTO) 5.6 % (1.7-9.3); NEUTROPHILS # (AUTO) 4.5 K/uL (1.8-7.7); NEUTROPHILS % (AUTO) 92.1 % (42.2-75.2); PLATELET COUNT (AUTO) 131 K/uL (140-450); RED BLOOD CELL COUNT(AUTO) 5.42 MIL/uL (4.20-5.40); RED CELL DISTRIBUTION WIDTH 15.6 % (11.6-13.7); WHITE BLOOD COUNT (AUTO) 4.9 K/uL (4.8-10.8)
--- NOTE | 2019-01-15 07:18 | NUR ---
RECEIVED ON A [employer] V60 BIPAP PLUGGED INTO RED OUTLET TOLERATING WELL WITHOUT ADVERSE REACTIONS NOTED TO A SMALL FACIAL MASK SECURED WITH HEAD GEAR LOC ASLEEP RESTING WELL WITHOUT DISTRESS NOTED GOOD CHEST RISE
[2019-01-15] MEDS: BLOOD GLUCOSE MONITORING 1 DEV DEV FS SCH ×4 (07:30→21:01)
--- NOTE | 2019-01-15 07:30 | NUR ---
RECEIVED REPORT FROM SAMPLE MAKER HAND RN AT BEDSIDE, PT IS AAOX4, ABLE TO FOLLOW COMMANDS AND MADE NEEDS KNOWN, VSS, DENIES PAIN, NO S/S OF DISTRESS, RHONCHI LUNG SOUNDS DREW, ON BIPAP AT FIO2 40, O2 SAT 90%. DENIES CHEST PAIN, SR ON ASSEMBLER DRY CELL AND BATTERY, CAPILLARY REFILL <3 SECONDS, LARGE SOFT ABDOMEN WITH ACTIVE BOWEL SOUNDS, CONTINENT WITH B&B'S, ABLE TO USE BSC, SKIN IS INTACT, WARM AND DRY TO TOUCH, ABLE TO MOVE ALL EXTREMITIES, IV SITE TO RIGHT FOREARM, 20GA, PATENT AND SL. HOB ELEVATED 30 DEGREES, SAFETY MEASURES IN PLACE, CALL LIGHT WITHIN REACH, WILL CONTINUE TO MONITOR.
[2019-01-15] MEDS: PANTOPRAZOLE 40 MG TABEC PO SCH (07:32)
[2019-01-15] MEDS: INSULIN LISPRO SLIDING SCALE 100 UNITS/ML VIAL SUBQ PRN ×4 (07:36→21:35)
--- NOTE | 2019-01-15 07:39 | NUR ---
Spoke with Valentine casework manager from [facility] and she stated she already gave auth to Kole from [facility] for the O2 auth #[id number]. She also said Flaquito from [facility] ext [phone] already ordered the Epap and will be delivered by tomorrow.
--- NOTE | 2019-01-15 07:51 | NUR ---
Spoke with Flaquito from [facility] ext [phone] and he stated the Epap has been ordered and it is expected to arrive tomorrow. Flaquito will call me tomorrow as soon as the equipment arrives so they can set it up at the patient's home.
--- NOTE | 2019-01-15 08:10 | NUR ---
CALLED [facility] FOR MD CREDIT REVIEW OFFICER EXCHANGE RECEIVING CALL FEMI WILL PAGE DR JIMMY TOWNSEND/RN NOTIFIED
[2019-01-15] MEDS: BUDESONIDE 0.25 MG/2 ML NEBU INH SCH ×2 (08:58→19:30)
--- NOTE | 2019-01-15 09:00 | NUR ---
Faxed to [facility] follow up appt to see Dr. Joseph Jimenez within 1 week.
--- NOTE | 2019-01-15 09:04 | NUR ---
AWAKE AND ALERT NO DISTRESS NOTED GOOD CHEST RISE BREATH SOUNDS DIFFUSED RHONCHI RIGHT SIDE TO DECREASED AT LEFT SIDE BRANCH OFFICER REQUEST TO PATIENT FOR DEEP BREATH AND COUGH BREATH SOUNDS NOW CLEAR BILATERAL
--- NOTE | 2019-01-15 09:10 | NUR ---
CALL BACK FROM DR KALEB LIN REVIEWED ABG SAMPLE REPORT STATES "SLOWLY IMPROVING: NO NEW ORDERS
[2019-01-15] MEDS: FUROSEMIDE 40 MG/4 ML VIAL IVP SCH ×2 (09:16→17:43)
[2019-01-15] MEDS: LISINOPRIL 20 MG TAB PO SCH (09:16)
[2019-01-15] MEDS: DOCUSATE SODIUM 100 MG GELCAP PO SCH (09:17)
[2019-01-15] MEDS: CARVEDILOL 3.125 MG TAB PO SCH ×2 (09:17→21:13)
[2019-01-15] MEDS: LEVOTHYROXINE 0.1 MG TAB PO SCH (09:17)
[2019-01-15] MEDS: metFORMIN 500 MG TAB PO SCH ×2 (09:17→21:14)
--- NOTE | 2019-01-15 10:03 | NUR ---
Follow up appointment slip given to pt to see Dr. Joseph Jimenez on 01/20/19 at 8615 with verbal understanding. Clinic number and address , [address]. [id number]. Second appt slip left inside the chart for discharge nurse to include upon discharge.
--- NOTE | 2019-01-15 10:05 | NUR ---
DR. LIN CAME IN TO SEE PT AT BEDSIDE, UPDATED PT'S CONDITION, WILL FOLLOW UP WITH NEW ORDERS.
--- NOTE | 2019-01-15 11:24 | NUR ---
OFF BIPAP AT THIS TIME REMOVED EARLIER BY KRISTIAN/RN FOR BREAKFAST TRAY ASLEEP GOOD CHEST RISE RR 24 SATURATION 95%
--- NOTE | 2019-01-15 11:43 | NUR ---
POST HHN THERAPY OFF BIPAP TO MASK FOR LUNCH TRAY ON SUPPLEMENTAL OXYGEN AT 5 LPM VIA OXYMIZER MANNY/BLADIMIR NOTIFIED SATURATION 95% RR 24 HR86 Addendum: 01/15/19 at 1148 by Reuben Ramirez RT BIPAP TO MASK ON STANDBY AT BEDSIDE
--- NOTE | 2019-01-15 12:00 | NUR ---
NO S/S OF DISTRESS, ON OXYMIZER AT 5L, O2 SAT 95%, DENIES PAIN, VSS. ABLE TO SIT UP ON THE BEDSIDE FOR LUNCH.
--- NOTE | 2019-01-15 13:13 | NUR ---
Faxed blood gas results and recent vital signs to Kole from [facility] . Kole's number .
--- NOTE | 2019-01-15 14:20 | NUR ---
DR. LOMBARDI CAME IN TO SEE PT AT BEDSIDE, UPDATED PT'S CONDITION, NO NEW ORDER AT THIS TIME.
--- NOTE | 2019-01-15 14:20 | NUR ---
AWAKE AND ALERT VERBALLY RESPONSIVE GOOD CHEST RISE SATURATION 94% ON SUPPLEMENTAL OXYGEN AT 5 LPM VIA OXYMIZER PATIENT REQUEST HHN THERAPY
[2019-01-15] MEDS: ALBUTEROL SULFATE/IPRATROPIU 3 ML SOL IH PRN (14:22)
--- NOTE | 2019-01-15 14:22 | NUR ---
PLACED PATIENT BACK ON BIPAP TO MASK WITH SAME SETTINGS NOTED HHN PRN THERAPY GIVEN
--- NOTE | 2019-01-15 15:28 | NUR ---
ASLEEP EASILY AWAKENS GOOD CHEST RISE STRONG MOIST MIXER WHIPPED TOPPING DURING THERAPY
--- NOTE | 2019-01-15 15:46 | NUR ---
TRANSFERRED TO [place] [address]-B SUPPLEMENTAL OXYGEN VIA E-TANK AT 5 LPM VIA OXYMIZER TOLERATED TRANSFER WELL WITHOUT INCIDENT SATURATION 94 RR 24
--- NOTE | 2019-01-15 15:55 | NUR ---
PT TRANSFERRED TO TELEMETRY ROOM 111B VIA BED, ALL BELONGS GOES WITH PT, REPORT GIVEN TO BLADIMIR SEGURA AT BEDSIDE, PT IS IN STABLE CONDITION AT THIS TIME.
--- NOTE | 2019-01-15 15:55 | NUR ---
RECEIVED BEDSIDE REPORT FROM ICU NURSE MANNY. PATIENT [id number]. PATIENT ON 5 L O2 OXIMIZER, NO DISTRESS NOTED. BIPAP MACHINE AT BEDSIDE. SKIN INTACT. ON TELE MONITOR AND STANDARD PRECAUTIONS IN PLACE. PATIENT AMBULATORY AND CONTINENT. FALL RISK PROTOCOL IN PLACE D/T GENERALIZED WEAKNESS. IV ON R FA 20 G SALINE LOCK. IV ASYMPTOMATIC, PATENT, AND INTACT. BED IN LOW POSITION, CALL LIGHT WITHIN REACH. WILL CONTINUE TO MONITOR.
--- NOTE | 2019-01-15 16:01 | NUR ---
AMBULATING BATHROOM WITH IMELDA/RN ASSIST ON SUPPLEMENTAL OXYGENT AT 5 LPM VIA OXYMIZER HEART NURSE AT BEDSIDE
--- NOTE | 2019-01-15 16:12 | NUR ---
PLACED BACK ON BIPAP TO MASK WITH SAME SETTINGS [employer]-7 CONTINUOS PULSE OXIMETER AT BEDSIDE ON AND FUNCTIONING WELL LOW SATURATION ALARM SET AT 90%
--- NOTE | 2019-01-15 17:39 | NUR ---
ADMINISTERED SCHEDULED MEDS. PATIENT TOLERATED WELL. WILL CONTINUE TO MONITOR. FAMILY AT BEDSIDE.
--- NOTE | 2019-01-15 17:58 | NUR ---
REMOVED FROM BIPAP TO MASK FRO DINNER TRAY PLACED ON SUPPLEMENTAL OXYGEN AT 5 LPM VIA OXYMIZER IMELDA/RN NOTIFIED
--- NOTE | 2019-01-15 19:22 | NUR ---
GAVE REPORT TO RECREATION WORKER NURSE ADAM GARRISON. PATIENT ENDORSED IN STABLE CONDITION.
--- NOTE | 2019-01-15 19:23 | NUR ---
RECEIVED REPORT FROM DAY SHIFT NURSE IMELDA-BLADIMIR AT BEDSIDE. PT RESTING IN BED, ON 5L OXIMIZER WITH BIPAP AT BEDSIDE, WITH RIGHT FA #[id number]. DISCUSSED PLAN OF CARE AND PT VERBALIZED UNDERSTANDING. NO S/S OF RESPIRATORY DISTRESS OR DISCOMFORT NOTED AT THIS TIME. BED IN LOWEST POSITION, BED BREAKS ON, BOTH SIDE RAILS UP AND FALL PRECAUTIONS IN PLACE. BEDSIDE TABLE AND CALL LIGHT ARE WITHIN REACH. WILL CONTINUE TO MONITOR.
--- NOTE | 2019-01-15 20:00 | NUR ---
VITAL SIGNS TAKEN AND TOLERATED WELL. BLOOD GLUCOSE 308- WILL ADMINISTER INSULIN COVERAGE. NO S/S OF RESPIRATORY DISTRESS OR DISCOMFORT NOTED AT THIS TIME. WILL CONTINUE TO MONITOR
[2019-01-15] MEDS: TEMAZEPAM 15 MG CAP PO SCH (21:00)
[2019-01-15] MEDS: ATORVASTATIN 20 MG TAB PO SCH (21:13)
[2019-01-15] MEDS: SPIRONOLACTONE 25 MG TAB PO SCH (21:14)
[2019-01-15] MEDS: INSULIN LANTUS 100 UNITS/ML 10 ML VIAL SUBQ SCH (21:16)
--- NOTE | 2019-01-15 21:35 | NUR ---
SCHEDULED MEDICATION GIVEN AND TOLERATED WELL. PT C/O COUGH AND ROBITUSSIN WAS GIVEN PRN. PT TOLERATED WELL. BEDTIME SNACK PROVIDED- PT STATED SHE PREFERRED ORANGE JUICE INSTEAD OF MILK. NO S/S OF RESPIRATORY DISTRESS OR DISCOMFORT NOTED AT THIS TIME. WILL CONTINUE TO MONITOR
--- NOTE | 2019-01-15 22:00 | NUR ---
PT ON BIPAP AND TOLERATING WELL. NO S/S OF RESPIRATORY DISTRESS OR DISCOMFORT NOTED AT THIS TIME. WILL CONTINUE TO MONITOR
[2019-01-16] VITALS (8 sets, daily range): BP systolic 120–141; BP diastolic 66–95
--- NOTE | 2019-01-16 | NUR ---
VITAL SIGNS TAKEN AND TOLERATED WELL. NO S/S OF RESPIRATORY DISTRESS OR DISCOMFORT NOTED AT THIS TIME. WILL CONTINUE TO MONITOR
--- NOTE | 2019-01-16 02:00 | NUR ---
PT CONTINUES TO SLEEP IN BED. NO S/S OF RESPIRATORY DISTRESS OR DISCOMFORT NOTED AT THIS TIME. WILL CONTINUE TO MONITOR
[2019-01-16] MEDS: ALBUTEROL SULFATE/IPRATROPIU 3 ML SOL IH SCH ×5 (03:00→20:05)
--- NOTE | 2019-01-16 04:00 | NUR ---
VITAL SIGNS TAKEN AND TOLERATED WELL. PT CONTINUES TO SLEEP IN BED. NO S/S OF RESPIRATORY DISTRESS OR DISCOMFORT NOTED AT THIS TIME. WILL CONTINUE TO MONITOR
[2019-01-16] MEDS: methylPREDNISolone SS 40 MG/ML VIAL IVP SCH ×3 (04:34→20:44)
--- NOTE | 2019-01-16 04:34 | NUR ---
SCHEDULED MEDICATION GIVEN AND TOLERATED WELL. NO S/S OF RESPIRATORY DISTRESS OR DISCOMFORT NOTED AT THIS TIME. WILL CONTINUE TO MONITOR
--- NOTE | 2019-01-16 06:00 | NUR ---
BLOOD GLUCOSE 318- INSULIN COVERAGE NEEDED. NO S/S OF RESPIRATORY DISTRESS OR DISCOMFORT NOTED AT THIS TIME. WILL CONTINUE TO MONITOR
[2019-01-16] MEDS: PANTOPRAZOLE 40 MG TABEC PO SCH (06:16)
--- NOTE | 2019-01-16 06:16 | NUR ---
SCHEDULED MEDICATION GIVEN AND TOLERATED WELL. INSULIN COVERAGE GIVEN. ASSISTED PT WITH NEW GOWN, SOCKS, AND SPONGE BATH. NO S/S OF RESPIRATORY DISTRESS OR DISCOMFORT NOTED AT THIS TIME. WILL CONTINUE TO MONITOR
[2019-01-16] MEDS: BLOOD GLUCOSE MONITORING 1 DEV DEV FS SCH ×4 (06:17→20:41)
[2019-01-16] MEDS: INSULIN LISPRO SLIDING SCALE 100 UNITS/ML VIAL SUBQ PRN ×4 (06:25→20:43)
[2019-01-16] MEDS: BUDESONIDE 0.25 MG/2 ML NEBU INH SCH ×2 (07:11→20:05)
--- NOTE | 2019-01-16 07:17 | NUR ---
RECEIVED BEDSIDE REPORT FROM IN CLASSROOM TUTOR RN FOR CONTINUITY OF CARE. AOX4. ON BIPAP. NO S/S DISTRESS. RESPIRATIONS EVEN AND UNLABORED. DENIES SOB/INCREASED WOB. HEART RHYTHM REGULAR. INTERMITTENT COUGH NOTED. PT DENIES SPUTUM PRODUCTION. LUNGS CTA. ABD SOFT AND ROUND. ON TELE MONITORING. SKIN INTACT. PER IN CLASSROOM TUTOR RN, PATIENT IS AMBULATORY. IV SITE PATENT AND ASYMPTOMATIC, ON SL. ALL SAFETY PRECAUTIONS IN PLACE, WILL CONTINUE TO MONITOR.
--- NOTE | 2019-01-16 07:34 | NUR ---
ENDORSED PT CARE TO DAY SHIFT NURSE JESSICA -BLADIMIR FOR CONTINUITY OF CARE.
--- NOTE | 2019-01-16 08:10 | NUR ---
SWITCHED PATIENT TO OXYMIZER FOR BREAKFAST.
[2019-01-16 08:49] LABS: BASOPHILS % (AUTO) 0.5 % (0.0-2.0); EOSINOPHILS % (AUTO) 0.2 % (0.0-4.0); HEMATOCRIT 51.8 % (36-48); HEMOGLOBIN 16.2 g/dL (12.0-16.0); LYMPHOCYTES # (AUTO) 0.2 K/uL (2.5-16.5); LYMPHOCYTES % (AUTO) 3.7 % (20.5-51.1); MEAN CORPUSCULAR HEMOGLOBIN 29 pg (27-31); MEAN CORPUSCULAR HGB CONC 31 g/dL (33-37); MEAN CORPUSCULAR VOLUME 93.7 fL (80-94); MONOCYTES # (AUTO) 0.3 K/uL (0.8-1.0); MONOCYTES % (AUTO) 6.2 % (1.7-9.3); NEUTROPHILS # (AUTO) 4.6 K/uL (1.8-7.7); NEUTROPHILS % (AUTO) 89.4 % (42.2-75.2); PLATELET COUNT (AUTO) 129 K/uL (140-450); RED BLOOD CELL COUNT(AUTO) 5.53 MIL/uL (4.20-5.40); RED CELL DISTRIBUTION WIDTH 15.5 % (11.6-13.7); WHITE BLOOD COUNT (AUTO) 5.2 K/uL (4.8-10.8)
[2019-01-16 09:22] LABS: ALBUMIN 3.1 g/dL (3.4-5.0); ANION GAP 6.5 (8-16); CARBON DIOXIDE 38.9 mmol/L (21-32); CREATININE 1.1 mg/dL (0.6-1.3); POTASSIUM 4.4 mmol/L (3.5-5.1); TOTAL BILIRUBIN 0.5 mg/dL (0.0-1.0)
[2019-01-16] MEDS: FUROSEMIDE 40 MG/4 ML VIAL IVP SCH ×2 (09:53→16:35)
[2019-01-16] MEDS: LISINOPRIL 20 MG TAB PO SCH (09:54)
[2019-01-16] MEDS: metFORMIN 500 MG TAB PO SCH ×2 (09:54→20:43)
[2019-01-16] MEDS: CARVEDILOL 3.125 MG TAB PO SCH ×2 (09:54→20:44)
[2019-01-16] MEDS: DOCUSATE SODIUM 100 MG GELCAP PO SCH (09:54)
[2019-01-16] MEDS: LEVOTHYROXINE 0.1 MG TAB PO SCH (09:59)
--- NOTE | 2019-01-16 10:02 | NUR ---
NO SOB ON 5L OXYMIZER.
--- NOTE | 2019-01-16 10:18 | NUR ---
Spoke with Flaquito from [facility] and informed him that the pt has no discharge order to go home and there is a possibility the pt might go to SNF instead. Flaquito stated he will hold the home set up for the EPAP.
--- NOTE | 2019-01-16 13:13 | NUR ---
PER DR. LOMBARDI, WEAN PATIENT OFF O2. KEEP O2 AT 88-90%. PATIENT IS 87% ON RA. WILL KEEP PATIENT ON 2L OXYMIZER AND TITRATE DOWN.
--- NOTE | 2019-01-16 13:17 | NUR ---
1130 MET WITH PT AT BEDSIDE AND DISCUSSED DISCHARGE PLAN FOR PATIENT TO GO HOME BUT AT THIS TIME HER RESPIRATORY STATUS IS NOT STABLE ENOUGH FOR HER TO GO HOME AND ASKED IF NEEDED SHE WOULD BE IN AGREEMENT TO GOING TO SNF FOR CONTINUED RESPIRATORY MANAGEMENT IF THAT IS WHAT THE PHYSICIAN DEEMED NECESSARY AND SHE DID SAY THAT SHE WOULD AGREE. [address] LIN AND HE SAID THAT AT THIS TIME THE PATIENT WILL REMAIN HOSPITALIZED THROUGH THE WEEK-END BUT PATIENT SHOULD BE ABLE TO GO HOME AND NOT REQUIRE SNF. 1210 RECEIVED CALL FROM CASSIDY AT [facility] AND INFORMED HIM THAT PATIENT WILL REMAIN HOSPITALIZED THROUGH THE WEEK-END AND IT IS NOT KNOWN AT THIS TIME WHEN PATIENT WILL BE READY FOR DISCHARGE. PER CASSIDY IF PATIENT NEEDS DISCHARGE ON SATURDAY HE CANNOT DELIVER THE EQUIPMENT TILL SATURDAY. ASKED HIM TO MEET WITH PATIENT TODAY AND IF NEEDED DELIVER EQUIPMENT TO THE HOSPITAL AND HE SAID THAT HE WOULD COME TO SEE PATIENT TO FIT HER FOR THE MASK. LIU MORGAN AT [facility] INFORMED OF THE PLAN.
--- NOTE | 2019-01-16 15:01 | NUR ---
PATIENT DESATURATING TO 84% ON RA. DENIES SOB/INCREASED WOB. PLACED PT ON 2L OXYMIZER AND PT SATURATING 90-91%. WILL CONTINUE TO MONITOR.
--- NOTE | 2019-01-16 15:49 | NUR ---
STRESS ENGINEER HAS DELIVERED BIPAP AVAPS MACHINE TO PATIENT AT BEDSIDE AND EXPLAINED USE TO PATIENT. ANSWERED ALL OF PATIENT'S QUESTIONS.
--- NOTE | 2019-01-16 19:28 | NUR ---
ENDORSED POC TO SHAREPOINT TRAINER RN. PATIENT IN STABLE CONDITION.
--- NOTE | 2019-01-16 19:29 | NUR ---
RECEIVED REPORT FROM DAY SHIFT NURSE JESSICA-RN AT BEDSIDE. PT RESTING IN BED, ON 5L OXIMIZER WITH BIPAP AT BEDSIDE, WITH LEFT HAND #[id number]. DISCUSSED PLAN OF CARE AND PT VERBALIZED UNDERSTANDING. NO S/S OF RESPIRATORY DISTRESS OR DISCOMFORT NOTED AT THIS TIME. BED IN LOWEST POSITION, BED BREAKS ON, BOTH SIDE RAILS UP AND FALL PRECAUTIONS IN PLACE. BEDSIDE TABLE AND CALL LIGHT ARE WITHIN REACH. WILL CONTINUE TO MONITOR.
--- NOTE | 2019-01-16 20:00 | NUR ---
VITAL SIGNS TAKEN AND TOLERATED WELL. BLOOD GLUCOSE 296- WILL ADMINISTER INSULIN COVERAGE. NO S/S OF RESPIRATORY DISTRESS OR DISCOMFORT NOTED AT THIS TIME. WILL CONTINUE TO MONITOR.
[2019-01-16] MEDS: INSULIN LANTUS 100 UNITS/ML 10 ML VIAL SUBQ SCH (20:42)
[2019-01-16] MEDS: SPIRONOLACTONE 25 MG TAB PO SCH (20:43)
[2019-01-16] MEDS: guaiFENesin/CODEINE 100/10MG 5 ML UDC PO PRN (20:44)
[2019-01-16] MEDS: TEMAZEPAM 15 MG CAP PO SCH (20:44)
[2019-01-16] MEDS: ATORVASTATIN 20 MG TAB PO SCH (20:44)
--- NOTE | 2019-01-16 20:44 | NUR ---
SCHEDULED MEDICATION GIVEN AND TOLERATED WELL. PT REFUSED RESTORIL BUT REQUESTING ROBITUSSIN FOR COUGH INSTEAD. INSULIN COVERAGE GIVEN AND TOLERATED WELL. ASSISTED PT TO USE TOILET AND ASSISTED PT BACK INTO BED. PT REQUESTED RT TO BE CALLED SO SHE CAN START USING BIPAP. CALLED RT RU. PT RESTING IN BED. NO S/S OF RESPIRATORY DISTRESS OR DISCOMFORT NOTED AT THIS TIME. WILL CONTINUE TO MONITOR.
--- NOTE | 2019-01-16 21:27 | NUR ---
PLACED ON BIPAP PLUGGED INTO RED OUTLET TO SMALL FACIAL MASK SECURED WITH HEAD MASIMO CONTINUOUS PULSE OXIMETER AT BEDSIDE ON AND FUNCTIONING WELL LOW SATURATION ALARM SET AT 90% SATURATION 97% ON FIO2 OF 40% TITRATED FIO2 TO 35% ADAM/RN NOTIFIED
--- NOTE | 2019-01-16 23:00 | NUR ---
PT CONTINUES TO SLEEP IN BED. NO S/S OF RESPIRATORY DISTRESS OR DISCOMFORT NOTED AT THIS TIME. WILL CONTINUE TO MONITOR.
[2019-01-17] VITALS: BP 140/89
--- NOTE | 2019-01-17 | NUR ---
VITAL SIGNS TAKEN AND TOLERATED WELL. NO S/S OF RESPIRATORY DISTRESS OR DISCOMFORT NOTED AT THIS TIME. WILL CONTINUE TO MONITOR.
[2019-01-17] MEDS: ALBUTEROL SULFATE/IPRATROPIU 3 ML SOL IH SCH ×7 (00:15→23:30)
--- NOTE | 2019-01-17 00:15 | NUR ---
RESTING WELL NO EVIDENCE OF PULMONARY DISTRESS AT THIS TIME GOOD CHEST RISE TOLERATING BIPAP TO MASK WELL WITHOUT ANY ADVERSE REACTIONS NOTED
--- NOTE | 2019-01-17 02:00 | NUR ---
PT CONTINUES TO SLEEP IN BED. NO S/S OF RESPIRATORY DISTRESS OR DISCOMFORT NOTED AT THIS TIME. WILL CONTINUE TO MONITOR.
--- NOTE | 2019-01-17 03:34 | NUR ---
NO RESPIRATORY DISTRESS NOTED AT THIS TIME GOOD CHEST RISE SATURATION 95% ONFIO2 OF 35% POST THERAPY TITRATED FIO2 32% ADAM/RN NOTIFIED
[2019-01-17 04:00] VITALS: BP 137/88
--- NOTE | 2019-01-17 04:00 | NUR ---
VITAL SIGNS TAKEN AND TOLERATED WELL. NO S/S OF RESPIRATORY DISTRESS OR DISCOMFORT NOTED AT THIS TIME. WILL CONTINUE TO MONITOR.
[2019-01-17] MEDS: methylPREDNISolone SS 40 MG/ML VIAL IVP SCH ×3 (04:39→19:58)
--- NOTE | 2019-01-17 04:39 | NUR ---
SCHEDULED MEDICATION GIVEN AND TOLERATED WELL. NO S/S OF RESPIRATORY DISTRESS OR DISCOMFORT NOTED AT THIS TIME. WILL CONTINUE TO MONITOR.
--- NOTE | 2019-01-17 05:50 | NUR ---
NO APPARENT SOB NOTED GOOD CHEST RISE
[2019-01-17] MEDS: BLOOD GLUCOSE MONITORING 1 DEV DEV FS SCH ×4 (06:20→19:56)
[2019-01-17] MEDS: PANTOPRAZOLE 40 MG TABEC PO SCH (06:20)
--- NOTE | 2019-01-17 06:20 | NUR ---
SCHEDULED MEDICATION GIVEN AND TOLERATED WELL. ASSISTED PT TO USE TOILET, SPONGE BATH AND GOWN CHANGE. PT TOLERATED WELL. NO S/S OF RESPIRATORY DISTRESS OR DISCOMFORT NOTED AT THIS TIME. WILL CONTINUE TO MONITOR.
--- NOTE | 2019-01-17 07:09 | NUR ---
ENDORSED PT CARE TO DAY SHIFT NURSE ISELA VILLAR FOR CONTINUITY OF CARE.
--- NOTE | 2019-01-17 07:10 | NUR ---
RECEIVED BEDSIDE REPORT FROM BLADIMIR MEDINA. PT STABLE, AWAKE, AND ALERT. NO SIGNS OF DISTRESS NOTED. DENIES PAIN OR SOB. ON OXIMIZER AT 5L. NO REDNESS, SWELLING, OR INFLAMMATION NOTED ON IV SITE. BED IN LOW POSITION. CALL LIGHT WITHIN REACH. SAFETY MEASURES IN PLACE. PLAN OF CARE REVIEWED.
--- NOTE | 2019-01-17 07:56 | NUR ---
PT EATING BREAKFAST AT THIS TIME WANTS BREATHING TX ADMINISTERED AT A LATER TIME. PT NOT SOB AT THIS TIME.
[2019-01-17 07:58] LABS: BASOPHILS % (AUTO) 0.1 % (0.0-2.0); HEMATOCRIT 58.1 % (36-48); HEMOGLOBIN 18.2 g/dL (12.0-16.0); LYMPHOCYTES # (AUTO) 0.3 K/uL (2.5-16.5); MEAN CORPUSCULAR HEMOGLOBIN 29 pg (27-31); MEAN CORPUSCULAR HGB CONC 31 g/dL (33-37); MEAN CORPUSCULAR VOLUME 94.1 fL (80-94); MONOCYTES # (AUTO) 0.5 K/uL (0.8-1.0); MONOCYTES % (AUTO) 7.6 % (1.7-9.3); NEUTROPHILS # (AUTO) 5.8 K/uL (1.8-7.7); NEUTROPHILS % (AUTO) 87.3 % (42.2-75.2); PLATELET COUNT (AUTO) 143 K/uL (140-450); RED BLOOD CELL COUNT(AUTO) 6.18 MIL/uL (4.20-5.40); RED CELL DISTRIBUTION WIDTH 15.3 % (11.6-13.7); WHITE BLOOD COUNT (AUTO) 6.7 K/uL (4.8-10.8)
[2019-01-17 08:00] VITALS: BP 139/92
[2019-01-17 08:10] LABS: ALBUMIN 3.6 g/dL (3.4-5.0); ANION GAP 7.2 (8-16); CARBON DIOXIDE 40.3 mmol/L (21-32); POTASSIUM 4.5 mmol/L (3.5-5.1); TOTAL BILIRUBIN 0.7 mg/dL (0.0-1.0)
[2019-01-17] MEDS: BUDESONIDE 0.25 MG/2 ML NEBU INH SCH ×2 (08:11→18:54)
[2019-01-17] MEDS: FUROSEMIDE 40 MG/4 ML VIAL IVP SCH ×2 (09:36→17:31)
[2019-01-17] MEDS: metFORMIN 500 MG TAB PO SCH ×2 (09:36→20:00)
[2019-01-17] MEDS: LEVOTHYROXINE 0.1 MG TAB PO SCH (09:37)
[2019-01-17] MEDS: DOCUSATE SODIUM 100 MG GELCAP PO SCH (09:37)
[2019-01-17] MEDS: LISINOPRIL 20 MG TAB PO SCH (09:37)
[2019-01-17] MEDS: CARVEDILOL 3.125 MG TAB PO SCH ×2 (09:38→19:59)
--- NOTE | 2019-01-17 09:50 | NUR ---
ADMINISTERED SCHEDULED MEDICATIONS. PT TOLERATED WELL. ON 2L OXIMIZER. DENIES SOB.
[2019-01-17 12:00] VITALS: BP 149/94
[2019-01-17] MEDS: INSULIN LISPRO SLIDING SCALE 100 UNITS/ML VIAL SUBQ PRN ×3 (12:23→20:01)
--- NOTE | 2019-01-17 12:31 | NUR ---
ADMINISTERED SCHEDULED MEDICATION AND HUMALOG 4 UNITS FOR BG 237. PT TOLERATED WELL.
--- NOTE | 2019-01-17 15:00 | NUR ---
FAMILY AT THE BEDSIDE. DENIES PAIN OR SOB. NO OTHER NEEDS AT THIS TIME.
[2019-01-17 16:00] VITALS: BP 144/92
--- NOTE | 2019-01-17 17:40 | NUR ---
ADMINISTERED SCHEDULED MEDICATIONS. PT TOLERATED WELL. NO OTHER NEEDS AT THIS TIME. FAMILY AT THE BEDSIDE.
--- NOTE | 2019-01-17 19:30 | NUR ---
ENDORSED PT TO RN ADAM FOR CONTINUITY OF CARE. PT STABLE, AWAKE, AND ALERT.
--- NOTE | 2019-01-17 19:31 | NUR ---
RECEIVED REPORT FROM DAY SHIFT NURSE ISELA VILLAR AT BEDSIDE. PT RESTING IN BED, ON 2L OXIMIZER WITH BIPAP AT BEDSIDE, WITH LEFT HAND #[id number]. DISCUSSED PLAN OF CARE AND PT VERBALIZED UNDERSTANDING. NO S/S OF RESPIRATORY DISTRESS OR DISCOMFORT NOTED AT THIS TIME. BED IN LOWEST POSITION, BED BREAKS ON, BOTH SIDE RAILS UP AND FALL PRECAUTIONS IN PLACE. BEDSIDE TABLE AND CALL LIGHT ARE WITHIN REACH. WILL CONTINUE TO MONITOR.
[2019-01-17] MEDS: ATORVASTATIN 20 MG TAB PO SCH (19:58)
[2019-01-17] MEDS: SPIRONOLACTONE 25 MG TAB PO SCH (19:59)
[2019-01-17 20:00] VITALS: BP 132/75
--- NOTE | 2019-01-17 20:00 | NUR ---
VITAL SIGNS TAKEN AND TOLERATED WELL. BLOOD GLUCOSE 208- WILL ADMINISTER INSULIN COVERAGE. NO S/S OF RESPIRATORY DISTRESS OR DISCOMFORT NOTED AT THIS TIME. WILL CONTINUE TO MONITOR.
[2019-01-17] MEDS: INSULIN LANTUS 100 UNITS/ML 10 ML VIAL SUBQ SCH (20:02)
--- NOTE | 2019-01-17 20:02 | NUR ---
SCHEDULED MEDICATION GIVEN AND TOLERATED WELL. INSULIN COVERAGE GIVEN. CT REFUSED RESTORIL. NO S/S OF RESPIRATORY DISTRESS OR DISCOMFORT NOTED AT THIS TIME. WILL CONTINUE TO MONITOR.
[2019-01-17] MEDS: TEMAZEPAM 15 MG CAP PO SCH (20:21)
[2019-01-17] MEDS: guaiFENesin/CODEINE 100/10MG 5 ML UDC PO PRN (22:09)
--- NOTE | 2019-01-17 22:09 | NUR ---
PT C/O COUGH. ADMINISTERED ROBITUSSIN AND PT TOLERATED WELL. NO S/S OF RESPIRATORY DISTRESS OR DISCOMFORT NOTED AT THIS TIME. WILL CONTINUE TO MONITOR.
[2019-01-18] VITALS: BP 121/76
--- NOTE | 2019-01-18 | NUR ---
VITAL SIGNS TAKEN AND TOLERATED WELL. NO S/S OF RESPIRATORY DISTRESS OR DISCOMFORT NOTED AT THIS TIME. WILL CONTINUE TO MONITOR.
--- NOTE | 2019-01-18 02:00 | NUR ---
PT CONTINUES TO SLEEP IN BED. NO S/S OF RESPIRATORY DISTRESS OR DISCOMFORT NOTED AT THIS TIME. WILL CONTINUE TO MONITOR.
[2019-01-18 04:00] VITALS: BP 148/94
--- NOTE | 2019-01-18 04:00 | NUR ---
VITAL SIGNS TAKEN AND TOLERATED WELL. NO S/S OF RESPIRATORY DISTRESS OR DISCOMFORT NOTED AT THIS TIME. WILL CONTINUE TO MONITOR.
[2019-01-18] MEDS: methylPREDNISolone SS 40 MG/ML VIAL IVP SCH ×3 (04:11→20:33)
--- NOTE | 2019-01-18 04:11 | NUR ---
SCHEDULED MEDICATION GIVEN AND TOLERATED WELL. NO S/S OF RESPIRATORY DISTRESS OR DISCOMFORT NOTED AT THIS TIME. WILL CONTINUE TO MONITOR.
[2019-01-18] MEDS: ALBUTEROL SULFATE/IPRATROPIU 3 ML SOL IH SCH ×6 (04:23→22:49)
[2019-01-18] MEDS: PANTOPRAZOLE 40 MG TABEC PO SCH (05:27)
--- NOTE | 2019-01-18 05:27 | NUR ---
SCHEDULED MEDICATION GIVEN AND TOLERATED WELL. ASSISTED PT TO USE TOILET. PT BACK IN BED AND RT MIAH ASSISTING PT TO BE PLACED BACK ON BIPAP. NO S/S OF RESPIRATORY DISTRESS OR DISCOMFORT NOTED AT THIS TIME. WILL CONTINUE TO MONITOR.
[2019-01-18] MEDS: BLOOD GLUCOSE MONITORING 1 DEV DEV FS SCH ×4 (06:10→21:42)
--- NOTE | 2019-01-18 07:20 | NUR ---
ENDORSED PT CARE TO DAY SHIFT NURSE RADHA FOR CONTINUITY OF CARE.
--- NOTE | 2019-01-18 07:30 | NUR ---
RECEIVED PT AAOX4, ON BIPAP WITH 94%. NO SOB NOTED, NO C/O PAIN AT THIS TIME. IV TO LT HAND PATENT AND INTACT. CHEST, DIMINISHED AIR ENTRY TO THE BASES. ABDOMEN SOFT, BOWEL SOUNDS PRESENT. INSTRUCTED PT TO CALL FOR ASSISTANCE, CALL LIGHT WITHIN REACH, VERBALIZED UNDERSTANDING.
[2019-01-18] MEDS: BUDESONIDE 0.25 MG/2 ML NEBU INH SCH ×2 (07:42→19:41)
[2019-01-18 08:00] VITALS: BP 120/89
[2019-01-18 08:10] LABS: BASOPHILS % (AUTO) 0.2 % (0.0-2.0); LYMPHOCYTES # (AUTO) 0.4 K/uL (2.5-16.5); LYMPHOCYTES % (AUTO) 4.7 % (20.5-51.1); MEAN CORPUSCULAR HEMOGLOBIN 30 pg (27-31); MEAN CORPUSCULAR HGB CONC 32 g/dL (33-37); MEAN CORPUSCULAR VOLUME 93.5 fL (80-94); MONOCYTES # (AUTO) 0.4 K/uL (0.8-1.0); MONOCYTES % (AUTO) 5.4 % (1.7-9.3); NEUTROPHILS # (AUTO) 6.9 K/uL (1.8-7.7); NEUTROPHILS % (AUTO) 89.7 % (42.2-75.2); PLATELET COUNT (AUTO) 127 K/uL (140-450); RED BLOOD CELL COUNT(AUTO) 5.77 MIL/uL (4.20-5.40); RED CELL DISTRIBUTION WIDTH 15.4 % (11.6-13.7); WHITE BLOOD COUNT (AUTO) 7.7 K/uL (4.8-10.8)
[2019-01-18 08:48] LABS: ALBUMIN 3.1 g/dL (3.4-5.0); ANION GAP 4.8 (8-16); CREATININE 0.8 mg/dL (0.6-1.3); POTASSIUM 3.8 mmol/L (3.5-5.1); TOTAL BILIRUBIN 0.6 mg/dL (0.0-1.0)
--- NOTE | 2019-01-18 09:10 | NUR ---
PT AMBULATORY TO THE BATHROOM WITH STANDBY ASSIST. ACTIVITY TOLERATED WELL. NO SOB NOTED.
[2019-01-18] MEDS: LISINOPRIL 20 MG TAB PO SCH (09:46)
[2019-01-18] MEDS: metFORMIN 500 MG TAB PO SCH ×2 (09:46→17:20)
[2019-01-18] MEDS: CARVEDILOL 3.125 MG TAB PO SCH ×2 (09:47→21:00)
[2019-01-18] MEDS: DOCUSATE SODIUM 100 MG GELCAP PO SCH (09:47)
[2019-01-18] MEDS: LEVOTHYROXINE 0.1 MG TAB PO SCH (09:47)
[2019-01-18] MEDS: FUROSEMIDE 40 MG/4 ML VIAL IVP SCH ×2 (10:16→17:20)
--- NOTE | 2019-01-18 11:41 | NUR ---
PT STATES SHE WANTS TO WEAR BIPAP WHILE SHE SLEEPS. PT PLACED ON BIPAP WITH DOCUMENTED SETTINGS. BIPAP ALARMS ON AND FUNCTIONING. WILL CONTINUE TO MONITOR.
[2019-01-18 12:00] VITALS: BP 125/86
[2019-01-18] MEDS: INSULIN LISPRO SLIDING SCALE 100 UNITS/ML VIAL SUBQ PRN ×3 (13:18→20:37)
[2019-01-18 16:00] VITALS: BP 112/75
--- NOTE | 2019-01-18 19:21 | NUR ---
PT SITTING AT THE SIDE OF THE BED. NO SOB NOTED. NO COMPLAINTS OF PAIN AT THIS TIME. ENDORSED TO NEXT SHIFT NURSE FOR CONTINUITY OF CARE.
--- NOTE | 2019-01-18 19:30 | NUR ---
RECEIVED REPORT FROM DAYSHIFT NURSE AT BEDSIDE FOR CONTINUITY OF CARE. PT AAOX4. PT IV NOTED L HAND 22G SALINE LOCK. NO SOB NO S/S OF DISTRESS ON 2L OXIMYZER. BED LOWERED CALL LIGHT WITHIN REACH WILL CONTINUE TO MONITOR.
[2019-01-18 20:00] VITALS: BP 105/68
[2019-01-18] MEDS: guaiFENesin/CODEINE 100/10MG 5 ML UDC PO PRN (20:32)
[2019-01-18] MEDS: ATORVASTATIN 20 MG TAB PO SCH (20:34)
[2019-01-18] MEDS: SPIRONOLACTONE 25 MG TAB PO SCH (20:34)
[2019-01-18] MEDS: INSULIN LANTUS 100 UNITS/ML 10 ML VIAL SUBQ SCH (20:38)
[2019-01-18] MEDS: TEMAZEPAM 15 MG CAP PO SCH (21:00)
--- NOTE | 2019-01-18 22:15 | NUR ---
PLACED PATIENT ONTO BIPAP WITH NO INCIDENT POST HHN TREATMENT AND PER PATIENTS REQUEST. SETTINGS: 10/07 RATE 20 FIO2 32%. PATIENT CONFIRMED COMFORT WITH MASK.
[2019-01-19] VITALS: BP 119/69
--- NOTE | 2019-01-19 01:42 | NUR ---
TOOK PATIENT OFF BIPAP @0134 TO USE THE RESTROOM AND PLACED BACK ON @0142 WITH NO INCIDENT.
[2019-01-19 04:00] VITALS: BP 139/84
[2019-01-19] MEDS: methylPREDNISolone SS 40 MG/ML VIAL IVP SCH ×2 (04:50→13:59)
--- NOTE | 2019-01-19 05:00 | NUR ---
PT CC: OF PAIN CALLED GAURAV CUT OUT PRESS OPERATOR. WAITING FOR CALL BACK.
[2019-01-19] MEDS: ALBUTEROL SULFATE/IPRATROPIU 3 ML SOL IH SCH ×3 (05:22→12:10)
[2019-01-19] MEDS: PANTOPRAZOLE 40 MG TABEC PO SCH (06:06)
[2019-01-19] MEDS ORDERED: LEVOTHYROXINE 0.1 MG TAB PO SCH (06:30)
[2019-01-19] MEDS: BLOOD GLUCOSE MONITORING 1 DEV DEV FS SCH ×2 (06:52→11:30)
[2019-01-19 07:07] LABS: BASOPHILS % (AUTO) 0.1 % (0.0-2.0); EOSINOPHILS % (AUTO) 0.2 % (0.0-4.0); HEMATOCRIT 55.1 % (36-48); HEMOGLOBIN 17.3 g/dL (12.0-16.0); LYMPHOCYTES # (AUTO) 0.5 K/uL (2.5-16.5); LYMPHOCYTES % (AUTO) 7.6 % (20.5-51.1); MEAN CORPUSCULAR HEMOGLOBIN 30 pg (27-31); MEAN CORPUSCULAR HGB CONC 31 g/dL (33-37); MEAN CORPUSCULAR VOLUME 93.9 fL (80-94); MONOCYTES # (AUTO) 0.6 K/uL (0.8-1.0); NEUTROPHILS # (AUTO) 5.1 K/uL (1.8-7.7); NEUTROPHILS % (AUTO) 82.1 % (42.2-75.2); PLATELET COUNT (AUTO) 128 K/uL (140-450); RED BLOOD CELL COUNT(AUTO) 5.87 MIL/uL (4.20-5.40); RED CELL DISTRIBUTION WIDTH 15.1 % (11.6-13.7); WHITE BLOOD COUNT (AUTO) 6.2 K/uL (4.8-10.8)
[2019-01-19 07:20] LABS: ALBUMIN 3.3 g/dL (3.4-5.0); ANION GAP 8.6 (8-16); CREATININE 0.9 mg/dL (0.6-1.3); POTASSIUM 3.6 mmol/L (3.5-5.1); TOTAL BILIRUBIN 0.8 mg/dL (0.0-1.0)
--- NOTE | 2019-01-19 07:34 | NUR ---
ENDORSED REPORT TO DAYSHIFT NURSE AT BEDSIDE FOR CONTINUITY OF CARE.
--- NOTE | 2019-01-19 07:35 | NUR ---
RECEIVED BEDSIDE REPORT FROM CLOVIS. PATIENT SLEEPING AT THIS TIME, ON OXIMIZER 2 L, NO DISTRESS NOTED. SKIN INTACT. PATIENT ON TELE MONITOR AND SPO2 MONITOR. IV ON L HAND 22 G SALINE LOCK. IV ASYMPTOMATIC, PATENT AND INTACT. STANDARD PRECAUTIONS IN PLACE. BED IN LOW POSITION, CALL LIGHT WITHIN REACH. SIDE RAILS X2 UP. WILL CONTINUE TO MONITOR.
[2019-01-19 08:00] VITALS: BP 143/88
[2019-01-19] MEDS: BUDESONIDE 0.25 MG/2 ML NEBU INH SCH (08:00)
[2019-01-19] MEDS: metFORMIN 500 MG TAB PO SCH (08:47)
[2019-01-19] MEDS: FUROSEMIDE 40 MG/4 ML VIAL IVP SCH (08:48)
[2019-01-19] MEDS: DOCUSATE SODIUM 100 MG GELCAP PO SCH (08:48)
[2019-01-19] MEDS: LISINOPRIL 20 MG TAB PO SCH (08:48)
[2019-01-19] MEDS: CARVEDILOL 3.125 MG TAB PO SCH (08:49)
--- NOTE | 2019-01-19 08:58 | NUR ---
ADMINISTERED SCHEDULED MEDS. PATIENT TOLERATED WELL. WILL CONTINUE TO MONITOR.
[2019-01-19] MEDS ORDERED: PRED10TA5 PO (09:10)
--- NOTE | 2019-01-19 11:41 | NUR ---
PATIENT O2 SAT 85% ON ROOM AIR. PATIENT NEEDS 2 L O2.
[2019-01-19 12:00] VITALS: BP 142/85
--- NOTE | 2019-01-19 12:10 | NUR ---
CONFIRMED PATIENT'S ADDRESS AND PHONE NUMBER. FAXED O2 QUALIFIER AND O2 ORDER TO [facility], [phone]. PHONE ELLIS [phone]. REMINDER PATIENT THAT SHE ALSO HAS APPOINTMENT WITH PCP, DR. DOWNING ON SATURDAY AND SHE HAS THE APPOINTMENT INFORMATION WITH HER.
--- NOTE | 2019-01-19 12:36 | NUR ---
PT SWITCHED TO 2L NC WILL CONTINUE TO MONITOR.
--- NOTE | 2019-01-19 12:45 | NUR ---
PATIENT SPEAKING ON TELEPHONE. SITTING ON EDGE OF BED, ON 2 L O2 OXIMIZER, NO DISTRESS NOTED. WILL CONTINUE TO MONITOR.
[2019-01-19] MEDS: INSULIN LISPRO SLIDING SCALE 100 UNITS/ML VIAL SUBQ PRN (13:59)
--- NOTE | 2019-01-19 15:16 | NUR ---
FAXED O2 ORDER AND O2 QUALIFIER TO [facility] [phone].
--- NOTE | 2019-01-19 15:30 | NUR ---
EDUCATED PATIENT ON DISCHARGE INSTRUCTIONS. PROVIDED PATIENT WITH EXCUSE NOTE FOR WORK. PROVIDED PATIENT WITH MEDICATION PRESCRIPTION AND APPOINTMENT FORM. EDUCATED PATIENT ON MEDS AND SIDE EFFECTS. INSTRUCTED PATIENT TO FOLLOW UP WITH PCP WITHIN 5-7 DAYS AND TO RETURN TO NEAREST ER WHEN EXPERIENCING FEVER, SOB, PAIN, ETC. REMOVED ID BAND, IV AND TIP INTACT, AND REMOVED TELE MONITOR. ANSWERED ALL QUESTIONS AND CONCERNS. PATIENT VERBALIZED UNDERSTANDING.
--- NOTE | 2019-01-19 15:31 | NUR ---
PATIENT STATED SHE IS UP TO DATE WITH PNA VACCINE WHEN ASKED IF SHE IS READY FOR PNA VACCINE TO BE GIVEN AT DISCHARGE. PATIENT STATED SHE RECEIVED VACCINE IN 2018.
== END 2019-01-19 15:45 | disposition home or self-care (01) | DRG 141 ==
LOC: MED 13:59 → MTU 15:34 → MIC 01-13 20:29 → MTU 01-15 15:55
PROVIDERS: ADMIT Hospitalist; ATTEND Hospitalist
PROC: 5A09357 Assistance with Respiratory Ventilation, Less than 24 Consecutive Hours, Continuous Positive Airway Pressure (ICD-10-PCS; principal; 2019-01-12)
PROC: 5A09457 Assistance with Respiratory Ventilation, 24-96 Consecutive Hours, Continuous Positive Airway Pressure (ICD-10-PCS; 2019-01-13)
PROC: 5A09357 Assistance with Respiratory Ventilation, Less than 24 Consecutive Hours, Continuous Positive Airway Pressure (ICD-10-PCS; 2019-01-16)
PROC: 5A09357 Assistance with Respiratory Ventilation, Less than 24 Consecutive Hours, Continuous Positive Airway Pressure (ICD-10-PCS; 2019-01-18)
DX: J45.901 Unspecified asthma with (acute) exacerbation (principal); J96.21 Acute and chronic respiratory failure with hypoxia; E87.3 Alkalosis; I50.43 Acute on chronic combined systolic (congestive) and diastolic (congestive) heart failure; E11.51 Type 2 diabetes mellitus with diabetic peripheral angiopathy without gangrene; E83.42 Hypomagnesemia; E66.2 Morbid (severe) obesity with alveolar hypoventilation; I24.8 Other forms of acute ischemic heart disease; J44.1 Chronic obstructive pulmonary disease with (acute) exacerbation; I48.2 Chronic atrial fibrillation; E03.9 Hypothyroidism, unspecified; I87.2 Venous insufficiency (chronic) (peripheral); I11.0 Hypertensive heart disease with heart failure; K21.9 Gastro-esophageal reflux disease without esophagitis; J96.22 Acute and chronic respiratory failure with hypercapnia; I25.10 Atherosclerotic heart disease of native coronary artery without angina pectoris; Z79.84 Long term (current) use of oral hypoglycemic drugs; Z79.4 Long term (current) use of insulin; Z79.899 Other long term (current) drug therapy; Z95.810 Presence of automatic (implantable) cardiac defibrillator; Z95.5 Presence of coronary angioplasty implant and graft; Z68.41 Body mass index [BMI] 40.0-44.9, adult
CPT/HCPCS: 36415; 36600; 71045; 80053; 82803; 82948; 83036; 83605; 83735; 83880; 84443; 84484; 85025; 87040; 87070; 87081; 87205; 94640; 94660; 96365; 96375; 99291; J1120; J1644; J1815; J1940; J2920; J2930; J3475; J7030; J7620; J7626; Q0092

== ENCOUNTER 2019-01-26 11:34 | Emergency (ER) | payer OTHER ==
[~2019-01-26] VITALS: Ht 157.5 cm; Wt 98.0 kg
[2019-01-26 11:48] VITALS: BP 148/104
--- NOTE | 2019-01-26 11:48 | NUR ---
PT TAKEN IN WHEELCHAIR TO ER BED 06
--- NOTE | 2019-01-26 11:50 | NUR ---
BIB SELF WITH C/O R ANKLE PAIN AFTER FALL LAST NIGHT. STATUS POST FALL PT STATES " LEG GAVE OUT ON ME" DENIES LOC, NVD AND OTHER INJURIES HX: DM, HTN, COPD, ASTHMA, CARDIAC DISORDER RX: LASIX, OMEPRAZOLE, LEVOTHYROXINE, SPIRONOLACTONE, QVAR
--- NOTE | 2019-01-26 12:03 | NUR ---
XRAY AT BEDSIDE
[2019-01-26] MEDS ORDERED: MORPHINE SULFATE 4 MG/ML SYR IM ONE (12:25)
[2019-01-26] MEDS ORDERED: KETOROLAC 60 MG/2 ML VIAL IM ONE (12:25)
--- NOTE | 2019-01-26 12:41 | NUR ---
PATIENT REFUSED CRUTCHES
[2019-01-26 14:18] VITALS: BP 132/90
--- NOTE | 2019-01-26 14:18 | NUR ---
Patient discharged with v/s stable. Written and verbal after care instructions given and explained. Patient alert, oriented and verbalized understanding of instructions. Ambulatory with CRUTCHES All questions addressed prior to discharge. ID band removed. Patient advised to follow up with PMD. Rx of MOTRIN & TRAMADOL given. Patient educated on indication of medication including possible reaction and side effects. Opportunity to ask questions provided and answered.
--- NOTE | 2019-01-26 15:15 | NUR ---
RECEIVED ORDER FOR WALKER. RECEIVED CALL FROM ADELSO FROM [facility] AND SHE SAID TO FAX THE FACE SHEET AND ORDER TO [facility], PHONE ELLIS [phone]. ELLIS SAID HE WOULD DELIVER THE WALKER ABOUT 5P.Pavithra. MATT ABRAMS.
--- NOTE | 2019-01-26 15:18 | NUR ---
UPON DISCHARGE PT DECIDED TO TAKE CRUTCHES
== END 2019-01-26 14:18 | disposition home or self-care (01) ==
LOC: MED 11:34
DX: S82.831A Other fracture of upper and lower end of right fibula, initial encounter for closed fracture (principal); J45.909 Unspecified asthma, uncomplicated; E11.9 Type 2 diabetes mellitus without complications; I10 Essential (primary) hypertension; Z79.4 Long term (current) use of insulin; Z79.899 Other long term (current) drug therapy; W19.XXXA Unspecified fall, initial encounter; Y93.89 Activity, other specified; Y92.89 Other specified places as the place of occurrence of the external cause; Y99.8 Other external cause status
CPT/HCPCS: 29515; 73610; 96372; 99283; J1885; J2270; Q0092

== ENCOUNTER 2020-01-24 07:07 | Observation (INO) | payer OTHER ==
[~2020-01-24] VITALS: Ht 157.5 cm; Wt 98.4 kg
[2020-01-24 07:10] VITALS: BP 158/95
--- NOTE | 2020-01-24 07:18 | NUR ---
Patient ambulated to bed 6. RN evaluating patient at bedside.
--- NOTE | 2020-01-24 07:24 | NUR ---
Dr. Bolaños is evaluating the patient at bedside.
[2020-01-24] MEDS ORDERED: IBUPROFEN 600 MG TAB PO ONE (07:25)
[2020-01-24] MEDS ORDERED: ALBUTEROL SULFATE/IPRATROPIU 3 ML SOL IH ONE (07:30)
--- NOTE | 2020-01-24 07:30 | NUR ---
PT C/O INCREASING SOB & COUGH STARTING LAST NIGHT. RESPIRATIONS ARE DEEP AND LABORED AT THIS TIME. O2 SAT RA 88% ON ARRIVAL TO ED. EXPIRATORY WHEEZES THROUGHOUT. HR REGULAR AND TACHYCARDIC AT 117 BPM. PT REPORTS MOIST COUGH OVER LAST 2 DAYS. DENIES FEVER, N/V/D. PT STATES WORK OF BREATHING INCREASES WHEN LAYING DOWN. PT PLACED ON BEDSIDE SUB ARC OPERATOR AND IN GOWN AT THIS TIME.
--- NOTE | 2020-01-24 07:32 | NUR ---
XRAY AT BEDSIDE
--- NOTE | 2020-01-24 07:34 | NUR ---
Breathing treatment administered by respiratory therapist at bedside.
--- NOTE | 2020-01-24 07:40 | NUR ---
FLU SWAB COLLECTED AND HANDED TO LAB AT BEDSIDE
[2020-01-24 08:18] LABS: BASOPHILS # (AUTO) 0.1 K/uL (0.00-0.22); BASOPHILS % (AUTO) 1.1 % (0.0-2.0); EOSINOPHILS # (AUTO) 0.1 K/uL (0-0.4); EOSINOPHILS % (AUTO) 1.8 % (0.0-4.0); HEMATOCRIT 33.5 % (36-48); HEMOGLOBIN 10.7 g/dL (12.0-16.0); LYMPHOCYTES # (AUTO) 0.3 K/uL (2.5-16.5); MEAN CORPUSCULAR HEMOGLOBIN 23 pg (27-31); MEAN CORPUSCULAR HGB CONC 32 g/dL (33-37); MEAN CORPUSCULAR VOLUME 71.4 fL (80-94); MONOCYTES # (AUTO) 0.5 K/uL (0.8-1.0); MONOCYTES % (AUTO) 6.7 % (1.7-9.3); PLATELET COUNT (AUTO) 194 K/uL (140-450); RED BLOOD CELL COUNT(AUTO) 4.69 MIL/uL (4.20-5.40); RED CELL DISTRIBUTION WIDTH 19.5 % (11.6-13.7)
--- NOTE | 2020-01-24 08:21 | NUR ---
Dr. Bolaños is re-evaluating the patient at bedside.
[2020-01-24 08:25] LABS: ALBUMIN 4.5 g/dL (3.4-5.0); ANION GAP 11.6 (8-16); CARBON DIOXIDE 34.9 mmol/L (21-32); CREATININE 0.9 mg/dL (0.6-1.3); POTASSIUM 3.5 mmol/L (3.5-5.1); TOTAL BILIRUBIN 0.6 mg/dL (0.0-1.0)
[2020-01-24 08:37] LABS: NEUTROPHILS % (AUTO) 86.4 % (42.2-75.2)
[2020-01-24] MEDS ORDERED: NACL 0.9% 500 ML IV ONE (08:45)
[2020-01-24] MEDS ORDERED: FUROSEMIDE 40 MG TAB PO ONE (08:45)
[2020-01-24] MEDS ORDERED: INSULIN REGULAR, HUMAN 100 UNIT/ML VIAL SUBQ ONE (08:45)
[2020-01-24] MEDS ORDERED: FUROSEMIDE 20 MG TAB ONE (08:46)
--- NOTE | 2020-01-24 09:15 | NUR ---
PT LEFT TO CT VIA RNEY
--- NOTE | 2020-01-24 09:27 | NUR ---
PT RETURNED FROM CT
[2020-01-24] MEDS ORDERED: METF850T PO (10:42)
[2020-01-24] MEDS ORDERED: SACU1TAB9 PO (10:42)
[2020-01-24] MEDS ORDERED: GLIP5TAB4 PO (10:42)
[2020-01-24] MEDS ORDERED: IVAB5TAB PO (11:03)
[2020-01-24] MEDS ORDERED: [UNRECOGNIZED DRUG - CODE] PO (11:03)
[2020-01-24] MEDS ORDERED: ROSU10TA1 PO (11:03)
[2020-01-24] MEDS ORDERED: DOCU-299 PO (11:03)
[2020-01-24] MEDS ORDERED: SERMDI INH (11:03)
[2020-01-24] MEDS ORDERED: LEVO0.173 PO (11:03)
[2020-01-24] MEDS ORDERED: OSC500 PO (11:03)
[2020-01-24] MEDS ORDERED: LIRA6SOL SC (11:03)
[2020-01-24] MEDS ORDERED: INSU100I7 SQ (11:03)
[2020-01-24] MEDS ORDERED: FERR325E14 PO (11:03)
--- NOTE | 2020-01-24 11:35 | NUR ---
Patient admitted to room 106B via gurney from ED. Ambulated to bed with steady gait. Received bedside report from ED nurse Marry. Left forearm IV 20G intact & asymptomatic. Medical obtained from pt. Respirations even & nonlabored on O2 @ 3Lpm via n/c. Pt oriented to room & unit, verbalized understanding of teachings provided. Call light within reach. Dr Jimenez paged for admission orders.
--- NOTE | 2020-01-24 11:42 | NUR ---
Patient will be admitted to care of DR. LIN. Admited to TELEMETRY. Will go to room 106B. Belongings list completed. Report to BLADIMIR KIM.
[2020-01-24] MEDS ORDERED: DEXTROSE 50% 50 ML SYR IVP PRN (12:10)
[2020-01-24] MEDS ORDERED: ONDANSETRON 4 MG/2 ML VIAL IVP PRN (12:10)
[2020-01-24] MEDS ORDERED: NON-FORMULARY ITEM (Cholecalciferol (Vitamin D3) (Vitamin D3) 50,000 UNIT) PO SCH (12:10)
[2020-01-24] MEDS ORDERED: ACETAMINOPHEN 650 MG/20.3 ML UDC PO PRN (12:10)
--- NOTE | 2020-01-24 12:20 | NUR ---
Spoke to Dr Jimenez re: new admit. Orders received and carried out.
[2020-01-24 16:00] VITALS: BP 141/68
[2020-01-24] MEDS ORDERED: AZITHROMYCIN 500 MG INJ VIAL IV ONE ×2 (16:45→16:48)
[2020-01-24] MEDS ORDERED: NON-FORMULARY ITEM (Rosuvastatin Calcium* (Crestor*) 10 MG) PO SCH (17:00)
[2020-01-24] MEDS ORDERED: ACETAMINOPHEN 325 MG TAB PO PRN (17:00)
[2020-01-24] MEDS ORDERED: AZITHROMYCIN 500 MG in DEXTROSE 5% 250 ML IV SCH (17:00)
[2020-01-24] MEDS ORDERED: ACETAMINOPHEN 325 MG TAB ONE (17:00)
[2020-01-24] MEDS ORDERED: NON-FORMULARY ITEM (Levothyroxine Sodium* (Synthroid*) 0.175 MG) PO SCH (17:00)
[2020-01-24] MEDS: BLOOD GLUCOSE MONITORING 1 DEV DEV FS SCH ×2 (17:24→21:08)
[2020-01-24] MEDS: INSULIN LISPRO SLIDING SCALE 100 UNITS/ML VIAL SUBQ PRN ×2 (17:24→21:06)
--- NOTE | 2020-01-24 19:30 | NUR ---
RECEIVED BEDSIDE REPORT FROM DAY RN. PT IS AAOX4. RESPIRATIONS ARE EQUAL AND UNLABORED ON NC 3L O2 NOTED SOME WHEEZING RT NOTIFIED FOR PRN BREATHING TREATMENT, SKIN INTACT. PT IS AMBULATORY ABLE TO MAKE NEEDS KNOWN, IV ON LAC20G TKO. POC DISCUSSED WITH PT. CALL LIGHT IS WITHIN REACH. WILL CONTINUE TO MONITOR.
[2020-01-24] MEDS: ALBUTEROL SULFATE/IPRATROPIU 3 ML SOL IH PRN (20:08)
--- NOTE | 2020-01-24 20:23 | NUR ---
RECEIVED PATIENT ON 3L NASAL CANNULA, TITRATED TO HOME O2 SETTINGS AT 2L, PULSE OX SAT 95%. PATIENT COMPLAINS OF FEELING SOB. PRN HHN ADMINISTERED. TOLERATED TX WELL WITHOUT ADVERSE SIDE EFFECTS. PT STATES IMPROVEMENT POST TX. PT MADE AWARE OF ORDERED MEDICATION FREQUENCY AND INSTRUCTED TO CALL NEEDED FOR SOB. NO ACUTE RESPIRATORY DISTRESS NOTED AT THIS TIME. WILL CONTINUE TO MONITOR.
--- NOTE | 2020-01-24 20:40 | NUR ---
PLACED PT ON CPAP. PT USES CPAP AT HOME, KNOWLEDGEABLE OF EQUIPMENT. PT AWARE ON DONNING/DOFFING EQUIPMENT. SKIN INTACT, NO REDNESS. GEL SKIN PROTECTIVE BARRIER IN PLACE. PT TOLERATING CPAP WELL. NO ACUTE RESPIRATORY DISTRESS NOTED AT THIS TIME. WILL CONTINUE TO MONITOR.
[2020-01-24] MEDS ORDERED: SPIRONOLACTONE 25 MG TAB PO SCH (21:00)
[2020-01-24] MEDS ORDERED: ATORVASTATIN 20 MG TAB PO SCH (21:00)
[2020-01-24] MEDS ORDERED: IVABRADINE HCL 5 MG PO SCH (21:00)
[2020-01-24] MEDS ORDERED: FUROSEMIDE 40 MG/4 ML VIAL IVP SCH (21:00)
[2020-01-24] MEDS ORDERED: LEVOTHYROXINE 0.075 MG, LEVOTHYROXINE 0.1 MG PO SCH ×2 (21:00)
[2020-01-24] MEDS ORDERED: LEVOTHYROXINE 0.1 MG TAB ONE (21:03)
[2020-01-24] MEDS ORDERED: LEVOTHYROXINE 0.075 MG TAB ONE (21:03)
[2020-01-24] MEDS: methylPREDNISolone SS 40 MG/ML VIAL IVP SCH (21:08)
--- NOTE | 2020-01-24 21:08 | NUR ---
VSS. BG 356 ADMINISTERED INSULIN PER SLIDING SCALE. ALL TYLER MEDICATIONS GIVEN PER ORDERS PT TOLERATED WELL. SAFETY MEASURES ARE IN PLACE. CALL LIGHT IS WITHIN REACH.
[2020-01-24] MEDS: FERROUS SULFATE 325 MG TABEC PO SCH (21:09)
[2020-01-24] MEDS: glipiZIDE 5 MG TAB PO SCH (21:10)
[2020-01-24] MEDS: OSELTAMIVIR PHOSPHATE 75 MG CAP PO SCH (21:11)
[2020-01-24] MEDS: CARVEDILOL 3.125 MG TAB PO SCH (21:11)
[2020-01-24] MEDS: metFORMIN 850 MG TAB PO SCH (21:15)
[2020-01-24 22:00] VITALS: BP 159/88
--- NOTE | 2020-01-24 22:30 | NUR ---
PT IS SLEEPING COMFORTABLY IN BED WITH EYES CLOSED. RESPIRATIONS ARE EQUAL AND UNLABORED ON BIPAP. CALL LIGHT IS WITHIN REACH.
[2020-01-25] VITALS: BP 140/76
--- NOTE | 2020-01-25 | NUR ---
VITAL SIGNS ARE WITHIN NORMAL LIMITS. DENIES PAIN. ALL NEEDS MET. WILL CONTINUE TO MONITOR.
[2020-01-25] MEDS: ALBUTEROL SULFATE/IPRATROPIU 3 ML SOL IH PRN ×3 (01:35→13:30)
--- NOTE | 2020-01-25 01:48 | NUR ---
BIPAP CHECK DONE. TITRATED FIO2 TO 36%. PRN BREATHING TREATMENT ADMINISTERED. TOLERATED TX WELL WITHOUT ADVERSE SIDE EFFECTS. NO ACUTE RESPIRATORY DISTRESS NOTED AT THIS TIME. WILL CONTINUE TO MONITOR.
--- NOTE | 2020-01-25 02:05 | NUR ---
PT IS SLEEPING COMFORTABLY IN BED WITH EYES CLOSED. PT REMAINS ON BIPAP RESPIRATIONS ARE EQUAL AND UNLABORED. SAFETY MEASURES ARE IN PLACE. CALL LIGHT IS WITHIN REACH. WILL CONTINUE TO MONITOR.
[2020-01-25 04:00] VITALS: BP 136/90
--- NOTE | 2020-01-25 04:00 | NUR ---
VITAL SIGNS ARE WITHIN NORMAL LIMITS. PT DENIES PAIN. ALL SAFETY MEASURES IN PLACE. CALL LIGHT IS WITHIN REACH. WILL CONTINUE TO MONITOR.
[2020-01-25] MEDS: methylPREDNISolone SS 40 MG/ML VIAL IVP SCH ×2 (04:35→12:15)
--- NOTE | 2020-01-25 06:21 | NUR ---
BLOOD SUGAR 297 ADMINISTERED INSULIN PER SLIDING SCALE. PT TOLERATED WELL. ALL SAFETY MEASURES ARE IN PLACE. CALL LIGHT IS WITHIN REACH. WILL CONTINUE TO MONITOR.
[2020-01-25] MEDS: INSULIN LISPRO SLIDING SCALE 100 UNITS/ML VIAL SUBQ PRN ×2 (06:23→12:08)
[2020-01-25] MEDS: BLOOD GLUCOSE MONITORING 1 DEV DEV FS SCH ×3 (06:26→17:07)
[2020-01-25 06:52] LABS: ANION GAP 7.1 (8-16); CARBON DIOXIDE 37.8 mmol/L (21-32); CREATININE 0.8 mg/dL (0.6-1.3); POTASSIUM 3.9 mmol/L (3.5-5.1)
[2020-01-25 07:04] LABS: BASOPHILS % (AUTO) 0.3 % (0.0-2.0); EOSINOPHILS % (AUTO) 0.2 % (0.0-4.0); HEMOGLOBIN 9.6 g/dL (12.0-16.0); LYMPHOCYTES # (AUTO) 0.3 K/uL (2.5-16.5); MEAN CORPUSCULAR HEMOGLOBIN 22 pg (27-31); MEAN CORPUSCULAR HGB CONC 31 g/dL (33-37); MONOCYTES # (AUTO) 0.2 K/uL (0.8-1.0); MONOCYTES % (AUTO) 2.9 % (1.7-9.3); NEUTROPHILS # (AUTO) 4.9 K/uL (1.8-7.7); NEUTROPHILS % (AUTO) 90.6 % (42.2-75.2); PLATELET COUNT (AUTO) 204 K/uL (140-450); RED BLOOD CELL COUNT(AUTO) 4.31 MIL/uL (4.20-5.40); RED CELL DISTRIBUTION WIDTH 18.9 % (11.6-13.7); WHITE BLOOD COUNT (AUTO) 5.4 K/uL (4.8-10.8)
--- NOTE | 2020-01-25 07:20 | NUR ---
RECEIVED BEDSIDE REPORT FROM PAVER OPERATOR NURSE. PT IS AWAKE, GETTING A BREATHING TX. NO S/S OF ACUTE DISTRESS NOTED. IV SITE L FA 20 G, SALINE LOCKED. SKIN IS INTACT. CALL LIGHT IS WITHIN REACH. WILL CONTINUE TO MONITOR.
--- NOTE | 2020-01-25 07:20 | NUR ---
GAVE BEDSIDE REPORT TO DAY RN. PT ENDORSED IN STABLE CONDITION.
[2020-01-25 08:00] VITALS: BP 149/84
[2020-01-25] MEDS ORDERED: SALMETEROL DISKUS 50 MCG/ACTUATION DISK INH SCH (08:00)
[2020-01-25] MEDS ORDERED: DOCUSATE SODIUM 100 MG GELCAP PO SCH (08:00)
[2020-01-25] MEDS ORDERED: NON-FORMULARY ITEM (Sacubitril/Valsartan (Entresto 49 mg-51 mg Tablet) 1 EACH) PO SCH (08:00)
--- NOTE | 2020-01-25 08:34 | NUR ---
PAGED DR LIN TO NOTIFY OF TROPONIN 0.688. DR LIN TORB CARDIAC CONSULT WITH DR. CAMPA.
--- NOTE | 2020-01-25 08:57 | NUR ---
PATIENT HAS BEEN SCREENED AND CATEGORIZED HIGH NUTRITION RISK. PATIENT WILL BE SEEN WITHIN 1-2 DAYS OF ADMISSION. 01/25/20-01/26/[address]
[2020-01-25] MEDS ORDERED: PANTOPRAZOLE 40 MG TABEC PO SCH (09:00)
[2020-01-25] MEDS ORDERED: NON-FORMULARY ITEM (Omeprazole 20 MG) PO SCH (09:00)
[2020-01-25] MEDS ORDERED: ENOXAPARIN 40 MG/0.4 ML SYR SUBQ SCH (09:00)
[2020-01-25] MEDS ORDERED: FUROSEMIDE 20 MG/2 ML VIAL IVP SCH (09:00)
[2020-01-25] MEDS ORDERED: ECOTRIN 81 MG TABEC PO SCH (09:00)
[2020-01-25] MEDS: OSELTAMIVIR PHOSPHATE 75 MG CAP PO SCH (09:16)
[2020-01-25] MEDS: glipiZIDE 5 MG TAB PO SCH (09:16)
[2020-01-25] MEDS: FERROUS SULFATE 325 MG TABEC PO SCH (09:16)
[2020-01-25] MEDS: CARVEDILOL 3.125 MG TAB PO SCH (09:16)
[2020-01-25] MEDS: metFORMIN 850 MG TAB PO SCH (09:22)
--- NOTE | 2020-01-25 09:32 | NUR ---
AM MEDS ADMINISTERED, PT TOLERATED WELL. PT IS DENYING ANY CHEST PAIN AT THIS TIME, PT AWARE THAT HER TROPONIN IS ELEVATED AND THAT SHE WILL BE SEEN BY DR CAMPA, PER DR LIN'S ORDER.
--- NOTE | 2020-01-25 10:43 | NUR ---
PER YOEL SAMPSON TO SUBSTITUTE VALSARTAN 80 MG DAILY FOR THE ENTRESTO COMBINATION PT TAKES AT HOME (OUR PHARMACY DOES NOT CARRY ENTRESTO). PHARMACIST PHUONG IS AWARE.
[2020-01-25] MEDS ORDERED: VALSARTAN 80 MG TAB PO SCH (11:30)
[2020-01-25 12:00] VITALS: BP 145/87
--- NOTE | 2020-01-25 12:58 | NUR ---
PAGED DR CAMPA TO NOTIFY OF TROPONIN 0.669. AWAITING CALL BACK. Addendum: 01/25/20 at 1341 by Radha Stack RN DR CAMPA CALLED BACK AND NOTIFIED OF TROPONIN 0.669, UP FROM 0.668. DR CAMPA SAYS HE WILL COME TO SEE THE PT IN 1-2 HOURS.
--- NOTE | 2020-01-25 15:01 | NUR ---
DISCHARGE PLANNING: THIS IS A 49 Y/O FEMALE PATIENT FROM HOME, WHO CAME IN DUE TO COUGH, SOB X 2 DAYS. PAST MEDICAL HISTORY INCLUDE DIABETES, HTN, CHF, OBESITY AND S/P IMPLANTABLE CARDIOVERTER DEFIBRILLATOR PLACEMENT AT [facility] [place]. INITIAL DIAGNOSIS OF PULMONARY EDEMA. CURRENT LABS INCLUDE WBC 5.4, H/H 9.6/31.0, NA/K 138/3.9, BUN/CREA 14/0.8, TROP 0.588. ON SOLU MEDROL AND AZITHROMYCIN. CARDIO CONSULT IN PLACE. DC PLAN TO HOME ONCE STABLE.
[2020-01-25 16:00] VITALS: BP 140/74
--- NOTE | 2020-01-25 16:38 | NUR ---
PT SEEN BY DR CAMPA Addendum: 01/25/20 at 1747 by Radha Stack RN OK TO DC PER DR. CAMPA
--- NOTE | 2020-01-25 17:47 | NUR ---
PT IS DISCHARGED. PT WAS GIVEN DC INSTRUCTIONS AND PRESCRIPTIONS. IV TAKEN OUT, WRIST BAND REMOVED. PT LEFT IN STABLE CONDITION WITH ALL OF HER BELONGINGS. VACCINES ARE UP TO DATE.
== END 2020-01-25 18:00 | disposition home or self-care (01) ==
LOC: MED 07:07 → MTU 11:15
PROVIDERS: ADMIT Internal Medicine Pulmonary Disease; ATTEND Internal Medicine Pulmonary Disease
DX: J44.9 Chronic obstructive pulmonary disease, unspecified (principal); E11.65 Type 2 diabetes mellitus with hyperglycemia; I11.0 Hypertensive heart disease with heart failure; I50.22 Chronic systolic (congestive) heart failure; E66.9 Obesity, unspecified; E03.9 Hypothyroidism, unspecified; E87.2 Acidosis; R79.89 Other specified abnormal findings of blood chemistry; G47.33 Obstructive sleep apnea (adult) (pediatric); E78.5 Hyperlipidemia, unspecified; K21.9 Gastro-esophageal reflux disease without esophagitis; Z99.89 Dependence on other enabling machines and devices; Z95.810 Presence of automatic (implantable) cardiac defibrillator; Z79.899 Other long term (current) drug therapy; Z68.39 Body mass index [BMI] 39.0-39.9, adult
CPT/HCPCS: 36415; 71046; 71275; 80048; 80053; 82948; 83605; 83880; 84484; 85025; 87040; 87081; 87804; 94640; 94660; 94760; 96361; 96365; 96372; 96375; 96376; 99291; G0378; J0456; J1650; J1815; J1940; J2920; J7030; J7060; Q9967; 96360